=== PATIENT | female | born 1945 | race Caucasian/White ===

== ENCOUNTER 2017-03-25 19:29 | Emergency (ER) ==
[2017-03-25 19:34] VITALS: BP 152/75; TEMP 99.3; BMI 31.7
[2017-03-25] MEDS ORDERED: NORCO 7.5-325 PO STA (19:47)
--- NOTE | 2017-03-25 20:14 | CT ---
EXAM: CT scan of the left knee without contrast HISTORY: Left knee pain. History of Cisneros's cyst. TECHNIQUE: Helical imaging of the left knee was performed without contrast. 2 mm thin axial images and coronal and sagittal reconstructions were provided for interpretation. Comparison none. FINDINGS: No acute fractures are seen within the distal femur and proximal tibia. The proximal fib amna appears intact. There is moderate loss of joint space seen along the medial compartment of the left knee. Small osteophytes are seen arising from the medial femoral condyle and medial tibial gladys teau. There is no evidence of joint effusion. There is a small popliteal Cisneros cyst seen on axial image number 60 take measuring 2.1 cm AP, 7-8 m m transverse, 3.8 cm in height. IMPRESSION: No acute fractures are seen within the left knee. 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 There is a small popliteal Cisneros cyst.
--- NOTE | 2017-03-25 20:18 | ED.PDOC ---
General ED Provider: Dr. BREANNE CLAYTON-ER Chief Complaint: Knee Pain/Injury Stated Complaint: my knee hurts--i have a bakers cyst Time Seen by Physician: 19:35 Mode of Arrival: Walk-In Information Source: Patient Exam Limitations: No limitations Primary Care Provider: DARSHAN DIAZ Nursing and Triage Documentation Reviewed and Agree: Yes Musculoskeletal Complaint Exam - Back Pain Complaint/Exam Mechanism of Injury: Reports: No known trauma Onset/Duration: several days Symptoms Are: Still present Timing: Constant Initial Severity: Mild Current Severity: Mild Location: Reports: Discrete (left knee) Character: Reports: Dull, Aching Aggravating: Reports: Movements, Lifting, Bending, Walking Alleviating: Reports: None Associated Signs and Symptoms: Reports: Pain with weight bearing TAD Risk Factors: Reports: None AAA Risk Factors: Reports: None Cauda Equina Risk Factors: Reports: None Epidural Abcess Risk Factors: Reports: None Related Surgical History: Reports: None Focal Tenderness: Yes Paraspinal Muscle Tenderness: No Paraspinal Muscle Spasm: No Scoliosis: No Lordosis: No Kyphosis: No SLR Test: Right Negative, Left Negative Hip Motion Testing Pain: Right Negative, Left Negative Focal Weakness: Present: None Focal Sensory Loss: Present: None Gait: Present: Abnormal Differential Diagnoses: Fracture, Strain, Sprain Review of Systems - Review Of Systems Constitutional: Reports: No symptoms Eyes: Reports: No symptoms Ears, Nose, Mouth, Throat: Reports: No symptoms Respiratory: Reports: No symptoms Cardiac: Reports: No symptoms GI: Reports: No symptoms : Reports: No symptoms Musculoskeletal: Reports: Joint pain Skin: Reports: No symptoms Neurological: Reports: No symptoms Endocrine: Reports: No symptoms Hematologic/Lymphatic: Reports: No symptoms All Other Systems: Reviewed and Negative Past Medical History - Past Medical History Endocrine: Reports: DM 2 Cardiovascular: Reports: Unknown Respiratory: Reports: Unknown Hematological: Reports: Unknown Gastrointestinal: Reports: Unknown Genitourinary: Reports: Unknown Neuro/Psych: Reports: Unknown Musculoskeletal: Reports: Unknown Cancer: Reports: Unknown Last Menstrual Period: POST MENOPAUSAL - Surgical History General Surgical History: Reports: Unknown - Family History Family History: Reports: Unknown - Social History Smoking Status: Never smoker Hx Substance Use: No Alcohol Screening: None Lives: With family Physical Exam - Physical Exam Appearance: Well-appearing, No pain distress, Well-nourished Pain Distress: Mild Eyes: SAMIA ENT: Ears normal, Nose normal, Oropharynx normal Neck: Supple Respiratory: Airway patent, Breath sounds clear, Breath sounds equal, Respirations nonlabored Cardiovascular: RRR, Pulses normal, No rub, No murmur GI/: Soft, Nontender, No masses, Bowel sounds normal, No Organomegaly Musculoskeletal: Limited ROM Skin: Warm, Dry, Normal color Neurological: Sensation intact, Motor intact, Reflexes intact, Cranial nerves intact, Alert, Oriented Psychiatric: Affect appropriate Interpretation - Radiology Interpretation Radiology Interpretation By: Radiologist Radiology Results: Positive Exam Interpreted: CT Scan Re-Evaluation - Re-Evaluation Time of Re-Evaluation: 20:18 Status: Improved Vital Signs Stable: Yes Pain Level: 1 Appearance: NAD Lungs: Clear Skin: Warm and Dry Neuro: Alert and Oriented X3 CV: RRR Critical Care Note - Critical Care Note Total Time (mins): 0 Course - Course Orders, Labs, Meds: Orders Category Date Time Status Hydrocodone Bit/Acetaminophen [Berne 7.5-325] MEDS 03/25/17 19:47 Discontinued 1 tab PO ONCE STA CT KNEE LEFT WITHOUT CONTRAST Stat RADS 03/25/17 19:47 Completed Medications Discontinued Medications Generic Name Dose Route Start Last Admin Trade Name Freq PRN Reason Stop Dose Admin Acetaminophen/Hydrocodone Bitart 1 tab 03/25/17 19:47 03/25/17 20:03 Berne 7.5-325 PO 03/25/17 19:48 1 tab ONCE STA Administration Vital Signs: Temp Pulse Resp BP Pulse Ox 03/25/17 19:30 99.3 F 69 16 152/75 H 97 Departure - Departure Time of Disposition: 20:18 Disposition: HOME SELF-CARE Discharge Problem: Knee pain Instructions: Knee Pain (ED) Condition: Good Pt referred to PMD for follow-up: Yes Additional Instructions: norco 7.5mg q 4hrs prn pain #20---f/u wtih dr diaz tomorrow as scheduled Allergies/Adverse Reactions: Allergies felodipine [From Plendil] Adverse Reaction (Verified 03/25/17 19:34) Menbxlw-Qht-Cne Reductase Inhibitor Adverse Reaction (Verified 03/25/17 19:34) Home Medications: Ambulatory Orders 1 [No Reported Medications] 03/25/17 Disposition Discussed With: Patient, Family
== END 2017-03-25 20:23 | disposition home or self-care (01) ==
LOC: ED 19:29
DX: M25.562 Pain in left knee (principal)
CPT/HCPCS: 99282

== ENCOUNTER 2017-03-27 09:11 | Outpatient (CLI) ==
--- NOTE | 2017-03-27 10:18 | US ---
EXAM: Ultrasound venous Doppler bilateral lower extremity HISTORY: Swelling, pain COMPARISON: None TECHNIQUE: Venous duplex ultrasound of the right and left lower extremity was performed using color , vila-scale, and Doppler flow imaging. FINDINGS: There is normal color flow and vila scale appearance of the right and left common femoral , greater saphenous, profunda femoral, femoral, popliteal, peroneal, posterior tibial, and anterior tibial veins without evidence of intraluminal thrombus. Compression and augmentation is normal. Th ere is a predominately anechoic fluid collection in the left popliteal fossa with minimal internal e choes measuring 1.4 x 2.2 x 6.5 cm. IMPRESSION: 1. No right or left lower extremity deep venous thrombosis. 2. Left Cisneros's cyst
== END 2017-03-27 09:12 | disposition home or self-care (01) ==
LOC: RAD 09:11
PROVIDERS: ATTEND Internal Medicine
DX: M79.89 Other specified soft tissue disorders (principal); M79.605 Pain in left leg; M79.604 Pain in right leg

== ENCOUNTER 2017-10-16 09:58 | Outpatient (CLI) | payer OTHER ==
--- NOTE | 2017-10-16 12:57 | MRI ---
EXAM: MRI left shoulder without contrast COMPARISON: None available. HISTORY: Left shoulder pain. No known injury. TECHNIQUE: Multiplanar noncontrast MR images of the left shoulder were acquired using a 1.2 Dana ma gnet. Several sequences are limited by patient motion artifact and several sequences were repeated. FINDINGS: There is marked supraspinatus and subscapularis tendinosis with moderate infraspinatus ten dinosis. There is thinning and articular surface irregularity involving the distal 1.6 cm of the sup raspinatus consistent with a partial-thickness articular surface tear involving greater than 50% of t he tendon thickness and spanning the full width of the tendon. There is also question of partial-thi ckness bursal surface tear involving the insertional fibers of the supraspinatus. No definite full-t hickness tear with tendon retraction though a small communicating full-thickness perforation is not e xcluded. Fluid in the overlying subacromial/subdeltoid bursa. The partial-thickness articular surfa ce tear of the supraspinatus extends through the anterior portion of the infraspinatus. Marked glenohumeral joint osteoarthrosis with extensive full-thickness cartilage defects on both side s of the joint with subchondral edema/cystic change/sclerosis throughout the glenoid and to a lesser extent the humeral head. Posterior subluxation of the humeral head within the glenoid fossa without a solomon dislocation. Moderate sized glenohumeral joint effusion with synovial thickening, nonspecifi c. 9 mm loose body at the level of the subscapularis recess with suspected additional smaller loose bodies. Limited assessment of the glenoid labrum on this non arthrographic study. Diminished size a nd irregularity of the posterior glenoid labrum suggesting a degenerative type tear with question of tear of the superior labrum as well. The long head of the biceps is located within the bicipital groove with tendinosis/partial tearing te nosynovitis. Hypertrophic degenerative changes of the acromioclavicular joint with marginal osteophytes and a join t effusion. Mild widening of the acromioclavicular joint space measuring 8 mm in extent which may be related previous sprain without abnormal subluxation of the clavicle. Mild muscle atrophy. IMPRESSION: 1. Moderate to marked rotator cuff tendinosis. Extensive partial-thickness tear of the supraspinatus involving greater than 50% of the tendon thickness with question of a pinhole full-thickness perfora tion. Partial tear of the infraspinatus. 2. Fluid in the subacromial/subdeltoid bursa. 3. Marked glenohumeral joint osteoarthrosis with posterior subluxation of the humeral head within th e glenoid fossa. 4. Degenerative type tear of the glenoid labrum. 5. Tendinosis/partial tear and tenosynovitis of the long head biceps.
== END 2017-10-16 09:59 | disposition home or self-care (01) ==
LOC: RAD 09:58
PROVIDERS: ATTEND Internal Medicine
DX: M25.512 Pain in left shoulder (principal)

== ENCOUNTER 2018-12-04 08:15 | Outpatient (RCR) ==
--- NOTE | 2018-11-05 12:10 | RS.OPPTDN ---
Subjective Date of Note: 11/05/18 Visit #: 8 Number of visits approved by Insurance: 3x8, reassess though at 10th Date of Evaluation: 10/20/18 Payer Source: MEDICARE Treatment Diagnosis: Left shoulder pain, shoulder stiffness, s/p left Reverse TSA Current Subjective/complaints:: Patient says she has taken the ABD pillow out of her sling. She states she has slight soreness to the upper arm, but says it' s completely tolerable. She says she continues to work on HeP and has obtained items for raven to work on at home per her request. *Precautions: NO shoulder extension past neutral or Adduction and Internal Rotation Interventions - Exercise/Activities/Manual Therapy Exercises/Activities: Patient continues to receive PROM to the left shoulder. Patient performs most therex AA since she has difficulty relaxing. She continues to niurka increased shoulder flexion to ~140 degrees today. ABD is tolerable in ranges of 55-65 degrees. Patient niurka increased PREs to 2# dumbell for wrist only and 1# elbow sup/pron (flex/ext/ulnar and radial dev) x 12. Returned for more PROM. Patient sits for shoulder shrugs and scap adduction. Shoulder pulleys for flexion only ~15 slow reps with intermittent holds. Total minutes of Exercise: 38 Manual Therapy: NA HOME EXERCISE PROGRAM: pendulum exercises, scapular elevation and retraction ( without moving left arm back), and left wrist and elbow AROM. - Charges Timed Code Treatment Minutes: 38 Total Treatment Time: 38 Procedures billed for this date of service:: ex3 Assessment: Patient presents with slight soreness to the L upper arm primarily along the mid deltoid. She has been able to niurka AA shoulder flexion to ~140 degrees without difficulty. She maintains little to no pain and has removed ABD pillow to the L shoulder and appears to niurka well. She maintains active lifestyle and high motivation. Patient Education: Home Exercise Program, Home Safety, Education of Plan of Care Patient demonstrates compliance with HEP?: Yes Short Term Goals Goal #1: Pt independent in HEP and compliant in surgical precautions. Goal to be met by: 11/03/18 Progress towards Goal:: Progressing Goal #2: Left shoulder passive flexion WFL's. Goal to be met by: 11/03/18 Progress towards Goal:: Met Goal #3: Pt to demonstrate good postural awareness. Goal to be met by: 11/03/18 Progress towards Goal:: Met Complex Human Resources Manager Goals Goal #1: Pt knows HEP and to continue ex's to maintain functional level at D/C. Goal to be met by: 12/24/18 Progress towards goal: Progressing Goal #2: Score on UE functional scale improved to 50% impairment or less. Goal to be met by: 12/24/18 Comments: Will assess in 2 more sessions Goal #3: Left shoulder AROM WFL's to perform all selfcare and ADL's. Goal to be met by: 12/24/18 Goal #4: Pt to report no pain with AROM of the left UE. Goal to be met by: 12/24/18 Plan Dates of Shelter Goals: 12/24/18 Expiration date of current Insurance Approval:: 12/24/18 PLAN: Continue progressing PROM and follow up with 11/19/18.
--- NOTE | 2018-11-07 15:29 | RS.OPPTDN ---
Subjective Date of Note: 11/07/18 Visit #: 9 Number of visits approved by Insurance: Reassess at 10th Date of Evaluation: 10/20/18 Payer Source: MEDICARE Treatment Diagnosis: Left shoulder pain, shoulder stiffness, s/p left Reverse TSA Current Subjective/complaints:: Patient denies having any increase in pain or stiffness to the L arm due to damp weather. She says she continues to work on HEP within protocol and feels her arm is more flexible with taking out abd pillow. *Precautions: NO shoulder extension past neutral or Adduction and Internal Rotation Interventions - Exercise/Activities/Manual Therapy Exercises/Activities: Patient continues to receive PROM to the left shoulder. Patient performs most therex AA since she has difficulty relaxing. She continues to niurka increased shoulder flexion to ~140 degrees today. ABD is now ~ 90 degrees avg AAROM. 1# wand for bilateral shoulder flexion to ~135 degrees x 10, chest press with 1# wand x 10 reps. Patient niurka increased PREs to 2# dumbell for wrist only and 1# elbow sup/pron (flex/ext/ulnar and radial dev) x 12. Returned for more PROM. Patient sits for red tband scap retraction in limited range x 10. Total minutes of Exercise: 38 Manual Therapy: NA HOME EXERCISE PROGRAM: pendulum exercises, scapular elevation and retraction ( without moving left arm back), and left wrist and elbow AROM. - Charges Timed Code Treatment Minutes: 38 Total Treatment Time: 38 Procedures billed for this date of service:: ex3 Assessment: Patient continues to progress well with all activity here and at home. 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 She is able to niurka increased ROM regarding shoulder flexion and abd this past week (particularly with abd today). She is able to dress herself and perform most ADLs/tooth cutter spur. Patient Education: Education of Plan of Care Patient demonstrates compliance with HEP?: Yes Short Term Goals Goal #1: Pt independent in HEP and compliant in surgical precautions. Goal to be met by: 11/03/18 Progress towards Goal:: Progressing Goal #2: Left shoulder passive flexion WFL's. Goal to be met by: 11/03/18 Progress towards Goal:: Met Goal #3: Pt to demonstrate good postural awareness. Goal to be met by: 11/03/18 Progress towards Goal:: Met Group Home Goals Goal #1: Pt knows HEP and to continue ex's to maintain functional level at D/C. Goal to be met by: 12/24/18 Progress towards goal: Progressing Goal #2: Score on UE functional scale improved to 50% impairment or less. Goal to be met by: 12/24/18 Progress towards goal: Progressing Goal #3: Left shoulder AROM WFL's to perform all selfcare and ADL's. Goal to be met by: 12/24/18 Progress towards goal: Progressing Comments: within restrictions Goal #4: Pt to report no pain with AROM of the left UE. Goal to be met by: 12/24/18 Plan Dates of Group Home Goals: 12/24/18 Expiration date of current Insurance Approval:: 12/24/18 PLAN: Continue to continue to progress ROM within protocol.
--- NOTE | 2018-11-14 13:55 | RS.OPPTDN ---
Subjective Date of Note: 11/10/18 Visit #: 10 Number of visits approved by Insurance: 3x8, Reassess at 10 Date of Evaluation: 10/20/18 Payer Source: MEDICARE Treatment Diagnosis: Left shoulder pain, shoulder stiffness, s/p left Reverse TSA Current Subjective/complaints:: Patient offers no c/o's. 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 *Precautions: NO shoulder extension past neutral or Adduction and Internal Rotation Interventions - Exercise/Activities/Manual Therapy Exercises/Activities: Patient continues to receive PROM to the left shoulder. Patient performs most therex AA since she has difficulty relaxing. She continues to niurka increased shoulder flexion to ~140 degrees today. ABD is now ~ 90 degrees avg AAROM. 1# wand for bilateral shoulder flexion to ~135 degrees x 10, chest press with 1# wand x 10 reps. Patient niurka PREs to 2# dumbell for wrist only and 1# elbow sup/pron (flex/ext/ulnar and radial dev) x 12. Returned for more PROM. Patient sits for red tband scap retraction in limited range x 10. Completes UE Functional Assessment. Total minutes of Exercise: 38 Manual Therapy: NA HOME EXERCISE PROGRAM: pendulum exercises, scapular elevation and retraction ( without moving left arm back), and left wrist and elbow AROM. - Objective Findings Observations,measurements,etc.: UE Functional Index: 10/80 or 88% impairment. Although this indicates pt is severely impaired, she verbalizes being able to do many of the tasks, but is limited due to restrictions. She is able to do most all activities due to using the R UE and has 2 jobs currently. - Charges Timed Code Treatment Minutes: 38 Total Treatment Time: 38 Procedures billed for this date of service:: ex3 Assessment: Patient demo improvement on UE Functional Index, but remains with much limitation due to sling and restrictions. She returns to the ortho and will possibly have sling d/c'd allowing her to actively move her LUE more and progress to the limited tasks. She verbalizes little to no pain consistently to the L UE. Patient Education: Education of Plan of Care Patient demonstrates compliance with HEP?: Yes Short Term Goals Goal #1: Pt independent in HEP and compliant in surgical precautions. Goal to be met by: 11/03/18 Progress towards Goal:: Met Goal #2: Left shoulder passive flexion WFL's. Goal to be met by: 11/03/18 Progress towards Goal:: Met Goal #3: Pt to demonstrate good postural awareness. Goal to be met by: 11/03/18 Progress towards Goal:: Met Nursing Home Goals Goal #1: Pt knows HEP and to continue ex's to maintain functional level at D/C. Goal to be met by: 12/24/18 Progress towards goal: Progressing Goal #2: Score on UE functional scale improved to 50% impairment or less. Goal to be met by: 12/24/18 Progress towards goal: Progressing Goal #3: Left shoulder AROM WFL's to perform all selfcare and ADL's. Goal to be met by: 12/24/18 Progress towards goal: Progressing Goal #4: Pt to report no pain with AROM of the left UE. Goal to be met by: 12/24/18 Plan Dates of Phlebotomy Program Coordinator Goals: 12/24/18 Expiration date of current Insurance Approval:: 12/24/18 PLAN: Continue progressing therex for L UE. Return to follow up on 11/19/18.
--- NOTE | 2018-11-17 11:43 | RS.OPPTDN ---
Subjective Date of Note: 11/17/18 Visit #: 13 Number of visits approved by Insurance: 3x8, Reassess at 20 Date of Evaluation: 10/20/18 Payer Source: MEDICARE Treatment Diagnosis: Left shoulder pain, shoulder stiffness, s/p left Reverse TSA Current Subjective/complaints:: Patient says, "I feel good today." She denies pain and continues to perform all tasks at work and home using the dominant (R) UE. She says she is sleeping well, but is anticipating having her sling removed and curious about a weight limit. She says, " I did not do any of my exercises over the weekend since I was working a double shift." *Precautions: NO shoulder extension past neutral or Adduction and Internal Rotation Interventions - Exercise/Activities/Manual Therapy Exercises/Activities: Patient continues to receive PROM to the left shoulder. ROM to the cspine assessed and is WNL for SB/rotation bilaterally. Patient continues to perform most therex AA due to inability to relax. 1# wand for bilateral shoulder flexion to ~135 degrees x 10 with no active movement from the L UE, chest press with 1# wand x 10 reps with no active movement from the L UE. Patient niurka PREs to 2# dumbell for wrist only and 1# elbow sup/pron (flex/ ext/ulnar and radial dev) x 12. Returned for more PROM. Gentle isometrics for ext/ER/flex with elbow bent supported by table at side x 3. Patient sits for Passive motion to the L UE for flexion and scaption range. Gentle isometrics for L shoulder ext/flex/ER with elbow flexed at side x 3. Red tband scap retraction in limited range x 10. Total minutes of Exercise: 38 Manual Therapy: NA HOME EXERCISE PROGRAM: pendulum exercises, scapular elevation and retraction ( without moving left arm back), and left wrist and elbow AROM. - Charges Timed Code Treatment Minutes: 38 Total Treatment Time: 38 Procedures billed for this date of service:: ex3 Assessment: Patient demo cspine WNL, PROM for flex WFL to 142-145 degrees on avg. ABD passively to 88-90 degrees avg. No pain with activities at home/work or at PT. She is limited on UE Functional Assessment based on restrictions and sling at this point. Patient confident with motion at this point and when sling is discontinued she remains motivated to capture as much mobility and strength as she can. Patient Education: Education of diagnosis, Body/Joint mechanics, Home Exercise Program, Education of Plan of Care Patient demonstrates compliance with HEP?: Yes Short Term Goals Goal #1: Pt independent in HEP and compliant in surgical precautions. Goal to be met by: 11/03/18 Progress towards Goal:: Met Goal #2: Left shoulder passive flexion WFL's. Goal to be met by: 11/03/18 Progress towards Goal:: Met Goal #3: Pt to demonstrate good postural awareness. Goal to be met by: 11/03/18 Progress towards Goal:: Met Nursing Home Goals Goal #1: Pt knows HEP and to continue ex's to maintain functional level at D/C. Goal to be met by: 12/24/18 Progress towards goal: Progressing Goal #2: Score on UE functional scale improved to 50% impairment or less. Goal to be met by: 12/24/18 Progress towards goal: Progressing Goal #3: Left shoulder AROM WFL's to perform all selfcare and ADL's. Goal to be met by: 12/24/18 Progress towards goal: Progressing Goal #4: Pt to report no pain with AROM of the left UE. Goal to be met by: 12/24/18 Progress towards goal: Progressing Plan Dates of Human Capital Manager Goals: 12/24/18 Expiration date of current Insurance Approval:: 12/24/18 PLAN: Patient to follow up with Saturday and continue ROM
--- NOTE | 2018-11-18 09:25 | RS.OPPTDN ---
Subjective Date of Note: 11/12/18 Visit #: 11 Number of visits approved by Insurance: Reassessed at 10. Continue Date of Evaluation: 10/20/18 Payer Source: MEDICARE Treatment Diagnosis: Left shoulder pain, shoulder stiffness, s/p left Reverse TSA Current Subjective/complaints:: Patient says she has had a cold, but seems to be doing better. She says that her shoulder is not painful and has had no symptoms of discomfort with progressing therex here. *Precautions: NO shoulder extension past neutral or Adduction and Internal Rotation Interventions - Exercise/Activities/Manual Therapy Exercises/Activities: Patient continues to receive PROM/AAROM to the L shoulder. She continues to niurka increased shoulder flexion to ~140 degrees today. ABD averages ~90 degrees AAROM. 1# wand for bilateral shoulder flexion to ~135 degrees x 10, chest press with 1# wand x 10 reps. Patient niurka increased PREs to 2# dumbell for wrist only and 2# elbow sup/pron (flex/ext/ ulnar and radial dev) x 12. Green tband for triceps x 10. Returned for more PROM. Patient sits for green tband scap retraction in limited range x 10. Shoulder shrugs and 1# wand for bilateral shoulder flexion at EOB for AAROM x 5. Total minutes of Exercise: 38 Manual Therapy: NA HOME EXERCISE PROGRAM: pendulum exercises, scapular elevation and retraction ( without moving left arm back), and left wrist and elbow AROM. - Charges Timed Code Treatment Minutes: 38 Total Treatment Time: 38 Procedures billed for this date of service:: ex3 Assessment: Patient continues to show improvement with niurka to progressive PROM to the L UE and verbally admits improved ease with all ADLs, but does depend on the R or dominant UE at this point until she is released from restrictions. Patient Education: Home Exercise Program, Education of Plan of Care Patient demonstrates compliance with HEP?: Yes Short Term Goals Goal #1: Pt independent in HEP and compliant in surgical precautions. Goal to be met by: 11/03/18 Progress towards Goal:: Progressing Goal #2: Left shoulder passive flexion WFL's. Goal to be met by: 11/03/18 Progress towards Goal:: Met Goal #3: Pt to demonstrate good postural awareness. Goal to be met by: 11/03/18 Progress towards Goal:: Met Form Setter Steel Forms Goals Goal #1: Pt knows HEP and to continue ex's to maintain functional level at D/C. Goal to be met by: 12/24/18 Progress towards goal: Progressing Goal #2: Score on UE functional scale improved to 50% impairment or less. Goal to be met by: 12/24/18 Progress towards goal: Progressing Goal #3: Left shoulder AROM WFL's to perform all selfcare and ADL's. Goal to be met by: 12/24/18 Progress towards goal: Progressing Goal #4: Pt to report no pain with AROM of the left UE. Goal to be met by: 12/24/18 Plan Dates of Penitentiary Goals: 12/24/18 Expiration date of current Insurance Approval:: 12/24/18 PLAN: Continue ROM activities to the L UE to improve passive motion until she returns to the MD next Saturday.
--- NOTE | 2018-11-18 11:26 | RS.PTSUM ---
Progress Note/Summary Date of Note: 11/10/18 Date of Evaluation: 10/20/18 Number of Visits: 10 Number of visits approved by Insurance: NA Reporting Period for this Progress Note: 10/20/18 through 11/10/18 Current Complaints/Gains: Ms. 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 She denies pain and performs her HEP consistently without difficulty. Objective Measurements/Presentation: She averages AAROM of shoulder flexion to 144 degrees, abduction to 90 degrees. She is progressing with light weights for the left wrist and elbow. Demonstrates Cervical Spine AROM WFL's without discomfort. She is independent in donning/doffing her regular clothing and sling. She demonstrates slight improvement in score on UE functional scale, but significant improvement is not expected at this time due to restrictions from surgery. Score on UE FOM 88% impairment. AT evaluation score was 96% impairment. G Codes: NA Source of G Code Score: NA - Short Term Goals Goal #1: Pt independent in HEP and compliant in surgical precautions. Goal to be met by: 12/09/18 Progress towards Goal:: Progressing Goal #2: Left shoulder passive flexion WFL's. Goal to be met by: 11/03/18 Progress towards Goal:: Met Goal #3: Pt to demonstrate good postural awareness. Goal to be met by: 11/03/18 Progress towards Goal:: Met - Paint Pourer Goals Goal #1: Pt knows HEP and to continue ex's to maintain functional level at D/C. Goal to be met by: 12/24/18 Progress towards goal: Progressing Goal #2: Score on UE functional scale improved to 50% impairment or less. Goal to be met by: 12/24/18 Progress towards goal: Progressing Goal #3: Left shoulder AROM WFL's to perform all selfcare and ADL's. Goal to be met by: 12/24/18 Progress towards goal: Progressing Goal #4: Pt to report no pain with AROM of the left UE. Goal to be met by: 12/24/18 Progress towards goal: Progressing - Assessment Assessment of Improvement/Progress: Ms. Kraft is making good progress with ROM and she is compliant with her HEP and surgery restrictions. She has potential to regain functional AROM of the left UE as the protocol allows us to progress her strengthening. Summary: Patient has made progress towards goals., Patient demonstrates potential to gain increased function with therapy - Plan Plan: Continue Plan of Care Frequency: 2-3 X week Duration: 4 weeks Dates of Longterm Goals: 12/24/18 Expiration date of current Insurance Approval:: nA
--- NOTE | 2018-11-21 16:01 | RS.OPPTDN ---
Subjective Date of Note: 11/19/18 Visit #: 14 Number of visits approved by Insurance: Reassess at 20 Date of Evaluation: 10/20/18 Payer Source: MEDICARE Treatment Diagnosis: Left shoulder pain, shoulder stiffness, s/p left Reverse TSA Current Subjective/complaints:: Patient says she is happy she has had a good report from her ortho. Reports he discontinued her sling and said she may resume to using her arm like normal, just not to "over do it." She says she has begun actively moving the shoulder and using it a little at work, being cautious. *Precautions: NO shoulder extension past neutral or Adduction and Internal Rotation Interventions - Exercise/Activities/Manual Therapy Exercises/Activities: Patient received AAROM to the L shoulder in supine including all motions. She begins gentle isometrics with elbow in neutral for all directions x 5. Assisted slightly with reaching and elevation while supine. 3# for wrist motions, 2# PREs for elbow with arm at side elbow bent. 1 # wand for bilateral shoulder flexion and ABD, chest presses 2x5. Sitting: AA shoulder elevation and ABD. Manual isometrics again with elbow in neutral x 5 for all dir. 1# wand for bilateral shoulder elevation x 5. Ended with finger ladder for fllexion x 2. Total minutes of Exercise: 38 Manual Therapy: NA HOME EXERCISE PROGRAM: pendulum exercises, scapular elevation and retraction ( without moving left arm back), and left wrist and elbow AROM. - Charges Timed Code Treatment Minutes: 38 Total Treatment Time: 38 Procedures billed for this date of service:: ex3 Assessment: Patient has had positive follow up with her ortho indicating she is out of her sling and may resume slowly into normal activity with the LUE. Patient indicates only slight soreness at end range elevation and ABD. She is pleased with her progress and with removal of sling. She is able to niurka beginning ARoM in dept well today with having mild soreness at end ranges, but should improve as therex is advanced. Patient Education: Education of diagnosis, Home Exercise Program, Education of Plan of Care Patient demonstrates compliance with HEP?: Yes Short Term Goals Goal #1: Pt independent in HEP and compliant in surgical precautions. Goal to be met by: 12/09/18 Progress towards Goal:: Progressing Goal #2: Left shoulder passive flexion WFL's. Goal to be met by: 11/03/18 Progress towards Goal:: Met Goal #3: Pt to demonstrate good postural awareness. 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 Goal to be met by: 12/24/18 Progress towards goal: Progressing Goal #2: Score on UE functional scale improved to 50% impairment or less. Goal to be met by: 12/24/18 Progress towards goal: Progressing Goal #3: Left shoulder AROM WFL's to perform all selfcare and ADL's. Goal to be met by: 12/24/18 Progress towards goal: Progressing Goal #4: Pt to report no pain with AROM of the left UE. Goal to be met by: 12/24/18 Progress towards goal: Progressing Plan Dates of Solid Fiber Paster Operator Goals: 12/24/18 Expiration date of current Insurance Approval:: 12/24/18 PLAN: Patient to continue according to protocol minus sling and advancing ROM.
--- NOTE | 2018-11-24 10:31 | RS.OPPTDN ---
Subjective Date of Note: 11/24/18 Visit #: 16 Number of visits approved by Insurance: Reassess at Date of Evaluation: 10/20/18 Payer Source: MEDICARE Treatment Diagnosis: Left shoulder pain, shoulder stiffness, s/p left Reverse TSA Current Subjective/complaints:: Patient c/o increased soreness to the L arm ( posterior shoulder). She says she is using it more at work and home and wonders if it is from this or colder weather. She c/o stiffness. *Precautions: NO shoulder extension past neutral or Adduction and Internal Rotation Pain Assessment - Pain Description Pain Location: L posterior shoulder Interventions - Exercise/Activities/Manual Therapy Exercises/Activities: Patient received AAROM to the L shoulder in supine including all motions. She continues with gentle isometrics with elbow in neutral for all directions 2 x 5. Assisted slightly with reaching and elevation while supine. 3# for wrist motions, 2# PREs for elbow with arm at side elbow bent. 1# wand for bilateral shoulder flexion and ABD, chest presses 2x5. Sitting: AA shoulder elevation and ABD. Manual isometrics again with elbow in neutral x 5 for all dir. 1# wand for bilateral shoulder elevation x 5. Assisted ABD with 1# wand x 5. Shoulder shrugs and scap adduction. Ended with finger ladder for fllexion x 2. Total minutes of Exercise: 40 Manual Therapy: NA HOME EXERCISE PROGRAM: pendulum exercises, scapular elevation and retraction ( without moving left arm back), and left wrist and elbow AROM. - Charges Timed Code Treatment Minutes: 40 Total Treatment Time: 40 Procedures billed for this date of service:: ex3 Assessment: Patient experiencing increased soreness to the L shoulder, probably from more AROM and resuming more ADLs/tasks. Patient has been educated to slowly return to light activities and to adhere to protocol/MD orders. She is able to resist with all isometrics well and without c/o's except slight soreness with resisted shoulder extension. Patient Education: Body/Joint mechanics, Home Exercise Program, Home Safety Patient demonstrates compliance with HEP?: Yes Short Term Goals Goal #1: Pt independent in HEP and compliant in surgical precautions. Goal to be met by: 12/09/18 Progress towards Goal:: Progressing Goal #2: Left shoulder passive flexion WFL's. Goal to be met by: 11/03/18 Progress towards Goal:: Met Goal #3: Pt to demonstrate good postural awareness. Goal to be met by: 11/03/18 Progress towards Goal:: Met [facility] Goals Goal #1: Pt knows HEP and to continue ex's to maintain functional level at D/C. Goal to be met by: 12/24/18 Progress towards goal: Progressing Goal #2: Score on UE functional scale improved to 50% impairment or less. Goal to be met by: 12/24/18 Progress towards goal: Progressing Goal #3: Left shoulder AROM WFL's to perform all selfcare and ADL's. Goal to be met by: 12/24/18 Progress towards goal: Progressing Goal #4: Pt to report no pain with AROM of the left UE. Goal to be met by: 12/24/18 Progress towards goal: Progressing Plan Dates of Ice Cream Dispenser Goals: 12/24/18 Expiration date of current Insurance Approval:: 12/24/18 PLAN: Patient to continue with advancing with AROM for the L UE.
--- NOTE | 2018-11-27 10:50 | RS.OPPTDN ---
Subjective Date of Note: 11/27/18 Visit #: 17 Number of visits approved by Insurance: Reassess at 20 Date of Evaluation: 10/20/18 Payer Source: MEDICARE Treatment Diagnosis: Left shoulder pain, shoulder stiffness, s/p left Reverse TSA Current Subjective/complaints:: Patient c/o increased pain and increased difficulty lifting her L arm. She says she was doing so well with her PT and then now she is really hurting. She says she believes it is because she has a period of time at work in which her arm is hanging down causing soreness into her shoulder blade and neck. She reports having to take a pain pill when she got home from work Saturday (she has not had to take any pain medicine for at least the past few weeks). She asks if she can wear her sling during this time only. *Precautions: NO shoulder extension past neutral or Adduction and Internal Rotation - Heat/Cryotherapy Treatment: Hot Pack (over the L shoulder and scapula in supine x 15 mins) Interventions - Exercise/Activities/Manual Therapy Exercises/Activities: Patient received more conservative treatment today due to pain. She received PROM, but mostly AA due to continued inability to relax. All dir to comfort level. Prone for dangles and PROM for flexion, scaption, abd and scapular mobilization. Patient sits for active shoulder shrugs and scap retraction, assisted shoulder elevation/abd with elbow bent. Finished with pulleys for elevation x 12 reps demo improved range from beginning of treatment. Total minutes of Exercise: 31 Manual Therapy: NA HOME EXERCISE PROGRAM: pendulum exercises, scapular elevation and retraction ( without moving left arm back), and left wrist and elbow AROM. - Charges Timed Code Treatment Minutes: 31 Total Treatment Time: 51 Procedures billed for this date of service:: hp, ex2 Assessment: Patient presented with increased pain and more limited ROM today and since her work day on Saturday. She admits muscular soreness along the L scapula and posterior shoulder tenderness after allowing her arm to hang for 3- 4 hours at work. She had improved pain and flexibility following heat and conservative therex today. She has inquired if she can wear her sling during this period at work. Will contact her ortho office to see if this is alright. Patient Education: Education of diagnosis, Activity Modification Patient demonstrates compliance with HEP?: Yes Short Term Goals Goal #1: Pt independent in HEP and compliant in surgical precautions. Goal to be met by: 12/09/18 Progress towards Goal:: Progressing Comments:: Discontinued sling last week due to MD orders Goal #2: Left shoulder passive flexion WFL's. Goal to be met by: 11/03/18 Progress towards Goal:: Met Comments:: Previously met, but limited today related to pain Goal #3: Pt to demonstrate good postural awareness. Goal to be met by: 11/03/18 Progress towards Goal:: Met Intensive Care Unit Nurse Goals Goal #1: Pt knows HEP and to continue ex's to maintain functional level at D/C. Goal to be met by: 12/24/18 Progress towards goal: Progressing Goal #2: Score on UE functional scale improved to 50% impairment or less. Goal to be met by: 12/24/18 Progress towards goal: Progressing Goal #3: Left shoulder AROM WFL's to perform all selfcare and ADL's. Goal to be met by: 12/24/18 Progress towards goal: Progressing Comments: REcently having difficulty Goal #4: Pt to report no pain with AROM of the left UE. Goal to be met by: 12/24/18 Progress towards goal: Progressing Plan Dates of Skilled Nursing Goals: 12/24/18 Expiration date of current Insurance Approval:: 12/24/18 PLAN: Continue with ROM activities to improve mobility and pain. Patient encouraged to try heat to the scapula and shoulder then perform HEP. Will contact MD office about wearing sling short term at work to prevent pain from prolonged hang.
--- NOTE | 2018-12-02 11:40 | RS.OPPTDN ---
Subjective Date of Note: 12/01/18 Visit #: 18 Number of visits approved by Insurance: REassess at 20 Date of Evaluation: 10/20/18 Payer Source: MEDICARE Treatment Diagnosis: Left shoulder pain, shoulder stiffness, s/p left Reverse TSA Current Subjective/complaints:: Patient says she cannot "wall walk anymore." She reports returning to her sling a few hours a day at work so that her arm is not hanging. She says that that helps her pain tremendously. She expresses being upset about her regression and now having to compensate by doing tasks different ways because of this pain. Points to the posterior L shoulder. *Precautions: NO shoulder extension past neutral or Adduction and Internal Rotation - Heat/Cryotherapy Treatment: Hot Pack (to the L shoulder in supine prior to therex) Interventions - Exercise/Activities/Manual Therapy Exercises/Activities: Patient continued to receive more conservative treatment today due to pain. She received PROM all dir. She receives multiple cues to relax so that she will have less pain and decreased tension during ROM. All dir to comfort level. Manual isometrics for shoulder ext/abd/ER/IR with elbow at neutral x 5. Prone for dangles and PROM for flexion, scaption, abd and scapular mobilization. Patient sits for active shoulder shrugs and scap retraction, assisted shoulder elevation/abd with elbow bent. Finished with pulleys for elevation x 12 reps demo improved range from beginning of treatment. Total minutes of Exercise: 27 Manual Therapy: NA HOME EXERCISE PROGRAM: pendulum exercises, scapular elevation and retraction ( without moving left arm back), and left wrist and elbow AROM. - Charges Timed Code Treatment Minutes: 27 Total Treatment Time: 42 Procedures billed for this date of service:: hp, ex2 Assessment: Patient was encouraged to use heat at home to ease pain and provide muscle relaxation. She also was encouraged to wear sling at work for a few hours to improve ability to perform tasks and avoid increase in pain. She demo continued limitation in ROM when compared to last week. She demo increased difficulty with donning/doffing jacket and pulleys at home. Heat does improve her ability and pain, but is short lived. Patient Education: Education of diagnosis, Body/Joint mechanics, Activity Modification Patient demonstrates compliance with HEP?: Yes Short Term Goals Goal #1: Pt independent in HEP and compliant in surgical precautions. Goal to be met by: 02/05/19 Progress towards Goal:: Progressing Goal #2: Left shoulder passive flexion WFL's. Goal to be met by: 11/03/18 Progress towards Goal:: Met Goal #3: Pt to demonstrate good postural awareness. Goal to be met by: 11/03/18 Progress towards Goal:: Met Supervisor Claims Goals Goal #1: Pt knows HEP and to continue ex's to maintain functional level at D/C. Goal to be met by: 12/24/18 Progress towards goal: Progressing Goal #2: Score on UE functional scale improved to 50% impairment or less. Goal to be met by: 12/24/18 Progress towards goal: Progressing Goal #3: Left shoulder AROM WFL's to perform all selfcare and ADL's. Goal to be met by: 12/24/18 Progress towards goal: Progressing Goal #4: Pt to report no pain with AROM of the left UE. Goal to be met by: 12/24/18 Progress towards goal: Progressing Plan Dates of Supervisor Claims Goals: 12/24/18 Expiration date of current Insurance Approval:: 12/24/2018 PLAN: Patient to continue with PROM and AROM as able progressing with protocol
--- NOTE | 2018-12-04 11:17 | RS.OPPTDN ---
Subjective Date of Note: 12/04/18 Visit #: 19 Number of visits approved by Insurance: Reassess at 20 Date of Evaluation: 10/20/18 Payer Source: MEDICARE Treatment Diagnosis: Left shoulder pain, shoulder stiffness, s/p left Reverse TSA Current Subjective/complaints:: Patient says she has worn her sling a few hours at work and at home and it helped her shoulder pain tremendously. She says she is able to lift her arm and reach better. Pain remains along the posterior shoulder (L) *Precautions: NO shoulder extension past neutral or Adduction and Internal Rotation - Heat/Cryotherapy Treatment: Hot Pack (15 mins to the L shoulder in supine covering the scapula) Interventions - Exercise/Activities/Manual Therapy Exercises/Activities: Patient returned to PROM all dir limited range. Even with limitation, she is able to niurka mobility better than Saturday. She performs manual isometrics all directions with arm in neutral 2x5. Patient sits for active shoulder shrugs and scap retraction, assisted shoulder elevation/abd with elbow bent. Ended with pulleys x 12 -15 reps, shoulder abd AA with wand in standing, pendulum. Total minutes of Exercise: 34 Manual Therapy: NA HOME EXERCISE PROGRAM: pendulum exercises, scapular elevation and retraction ( without moving left arm back), and left wrist and elbow AROM. - Charges Timed Code Treatment Minutes: 34 Total Treatment Time: 49 Procedures billed for this date of service:: hp, ex2 Assessment: Patient has returned to wearing sling at work a few hours and at home in the afternoon to ease pain and pulling at the L UE. She denies any pain extending to her neck and demo cspine ROM WFL. She is able to niurka PROM better today including further range and overall less pain. She has tenderness along the inferior scapula through palpation. She demo greater ease with pulleys and improved range with less compensation with AA shoulder abd. Patient Education: Education of diagnosis, Home Exercise Program, Activity Modification, Education of Plan of Care Patient demonstrates compliance with HEP?: Yes Short Term Goals Goal #1: Pt independent in HEP and compliant in surgical precautions. Goal to be met by: 12/09/18 Progress towards Goal:: Progressing Goal #2: Left shoulder passive flexion WFL's. Goal to be met by: 11/03/18 Progress towards Goal:: Progressing Goal #3: Pt to demonstrate good postural awareness. Goal to be met by: 11/03/18 Progress towards Goal:: Met [facility] Goals Goal #1: Pt knows HEP and to continue ex's to maintain functional level at D/C. Goal to be met by: 12/24/18 Progress towards goal: Progressing Goal #2: Score on UE functional scale improved to 50% impairment or less. Goal to be met by: 12/24/18 Progress towards goal: Progressing Goal #3: Left shoulder AROM WFL's to perform all selfcare and ADL's. Goal to be met by: 12/24/18 Progress towards goal: Progressing Goal #4: Pt to report no pain with AROM of the left UE. Goal to be met by: 12/24/18 Progress towards goal: Progressing Plan Dates of Supervisor Cutting And Boning Goals: 12/24/18 Expiration date of current Insurance Approval:: 12/24/18 PLAN: Reassess at next visit
== END 2018-12-04 23:59 | disposition short-term general hospital (02) ==
PROVIDERS: ATTEND Orthopaedic Surgery
DX: M19.012 Primary osteoarthritis, left shoulder (principal); Z96.612 Presence of left artificial shoulder joint; M62.81 Muscle weakness (generalized); M25.512 Pain in left shoulder; M25.612 Stiffness of left shoulder, not elsewhere classified

== ENCOUNTER 2019-01-01 08:15 | Outpatient (RCR) ==
--- NOTE | 2018-12-08 09:31 | RS.CSNOTE ---
PT Case Note Date of Note: 12/08/18 Title of document: Case Note Note: Patient presents with sling and c/o pain enough that she has wanted to go to [facility] over the weekend. She reports her pain medication has not improved her pain this morning and she is not able to roberto bra or lift her arm enough to perform pulleys. She points to pain at the supraspinatus insertion with great deal of tenderness, pulling away from light palpation. She has been working since Saturday with her sling. Message was placed with Dr. Haq's nurse line and pt was also encouraged to call for a sooner appt (12/31/18). Recent 2 notes faxed. Number of visits approved by Insurance: 24/reassess at 20th (next visit) Expiration date of current Insurance Approval:: 12/24/18
--- NOTE | 2018-12-25 16:23 | RS.OPPTDN ---
Subjective Date of Note: 12/25/18 Visit #: 20 Number of visits approved by Insurance: Continue 12/24/18 2x4 Date of Evaluation: 10/20/18 Payer Source: MEDICARE Treatment Diagnosis: Left shoulder pain, shoulder stiffness, s/p left Reverse TSA Current Subjective/complaints:: Patient says, "My pain is a lot better." Reports she can touch the area that was hypersensitive at LDOS without difficulty now. States she has been careful at home and work not to use the L arm. She sleeps in her sling and has been performing only the HEP Dr. Haq told her to do. She denies taking OTC or prescription meds for pain. *Precautions: NO shoulder extension past neutral or Adduction and Internal Rotation <VICTOR MANUEL MEADOWS - Last Filed: 12/25/18 16:22> - Heat/Cryotherapy Treatment: Cryotherapy (15 mins surrounding the L shoulder after therex in supine) <VICTOR MANUEL MEADOWS - Last Filed: 12/25/18 16:22> Interventions - Exercise/Activities/Manual Therapy Exercises/Activities: Conservative treatment today as it is her first day to resume since 12/08/18. She receives PROM for flexion/abd and to the elbow. She was educated on diagnosis and safety with work duties, further encouraging her to adhere to MD orders. 25 mins total Manual Therapy: NA HOME EXERCISE PROGRAM: pendulum exercises, scapular elevation and retraction ( without moving left arm back), and left wrist and elbow AROM. - Charges Timed Code Treatment Minutes: 25 Total Treatment Time: 40 Procedures billed for this date of service:: cp, ex <VICTOR MANUEL MEADOWS - Last Filed: 12/25/18 16:22> Assessment: Patient able to niurka passive flexion to 90 degrees easily today in supine. She continues to try to assist with all motions. She is compliant with using sling for work and sleep. She uses R UE to assist L UE short ranges at home without difficulty. She is not using any pain medication at this point. Patient Education: Education of diagnosis, Body/Joint mechanics, Home Exercise Program, Home Safety, Education of Plan of Care <VICTOR MANUEL MEADOWS - Last Filed: 12/25/18 16:22> Short Term Goals Goal #1: Pt independent in HEP and compliant in surgical precautions. Goal to be met by: 12/09/18 Progress towards Goal:: Progressing Goal #2: Left shoulder passive flexion WFL's. Goal to be met by: 11/03/18 Progress towards Goal:: Progressing Goal #3: Pt to demonstrate good postural awareness. Goal to be met by: 11/03/18 Progress towards Goal:: Met <VICTOR MANUEL MEADOWS - Last Filed: 12/25/18 16:22> Goal to be met by: 01/09/19 Goal to be met by: 01/09/19 <ADAM LOWERY - Last Filed: 12/26/18 08:07> Senior Care Goals Goal #1: Pt knows HEP and to continue ex's to maintain functional level at D/C. Goal to be met by: 01/21/19 Progress towards goal: Progressing Goal #2: Score on UE functional scale improved to 50% impairment or less. Goal to be met by: 01/21/19 Progress towards goal: Progressing Goal #3: Left shoulder AROM WFL's to perform all selfcare and ADL's. Goal to be met by: 01/21/19 Progress towards goal: Progressing Goal #4: Pt to report no pain with AROM of the left UE. Goal to be met by: 01/21/19 Progress towards goal: Progressing <VICTOR MANUEL MEADOWS - Last Filed: 12/25/18 16:22> Plan Dates of Senior Care Goals: 01/21/19 Expiration date of current Insurance Approval:: 01/21/19 PLAN: Continue with new order for ROM per Dr. Severino TOM x 4 weeks <VICTOR MANUEL MEADOWS - Last Filed: 12/25/18 16:22>
--- NOTE | 2018-12-29 10:44 | RS.OPPTDN ---
Subjective Date of Note: 12/29/18 Visit #: 21 Number of visits approved by Insurance: 2x4-6 weeks with continuation order Date of Evaluation: 10/20/18 Payer Source: MEDICARE Treatment Diagnosis: Left shoulder pain, shoulder stiffness, s/p left Reverse TSA Current Subjective/complaints:: Patient says she is surprised by how well her arm is doing. She says that she has maintained wearing her sling at work and community. She says she has been very cautious of her L shoulder and resting it as much as possible. She reports no pain and no tenderness to the shoulder or scapular area. No pain meds for over 2 weeks. *Precautions: NO shoulder extension past neutral or Adduction and Internal Rotation - Heat/Cryotherapy Treatment: Cryotherapy (15 mins to the L shoulder/scap after therex) Interventions - Exercise/Activities/Manual Therapy Exercises/Activities: Continued with PROM to the L shoulder and elbow in supine all directions as niurka. Resumed gentle isometrics for flex/abd/IR/ER x 5. Began pulleys for flexion in sitting x 10. Continued to educate on sling wear and HEP review. 30 mins total Manual Therapy: NA HOME EXERCISE PROGRAM: pendulum exercises, scapular elevation and retraction ( without moving left arm back), and left wrist and elbow AROM. - Charges Timed Code Treatment Minutes: 30 Total Treatment Time: 45 Procedures billed for this date of service:: cp, ex2 Assessment: Patient niurka passive flexion initially to 90 degrees, then as PROM progressed, she demo 105 degrees. ABD passively to 95 degrees. No pain or soreness experienced with any ROM today or since last session. Patient remains active with work duties and home tasks, but is mindful of shoulder restrictions and wears sling as instructed. She demo 4-/5 MMT grossly throughout the L shoulder. Patient Education: Education of diagnosis, Home Exercise Program, Home Safety Patient demonstrates compliance with HEP?: Yes Short Term Goals Goal #1: Pt independent in HEP and compliant in surgical precautions. Goal to be met by: 01/09/19 Progress towards Goal:: Progressing Goal #2: Left shoulder passive flexion WFL's. Goal to be met by: 01/09/19 Progress towards Goal:: Progressing Goal #3: Pt to demonstrate good postural awareness. Goal to be met by: 11/03/18 Progress towards Goal:: Met Ward Attendant Goals Goal #1: Pt knows HEP and to continue ex's to maintain functional level at D/C. Goal to be met by: 01/21/19 Progress towards goal: Progressing Goal #2: Score on UE functional scale improved to 50% impairment or less. Goal to be met by: 01/21/19 Progress towards goal: Progressing Goal #3: Left shoulder AROM WFL's to perform all selfcare and ADL's. Goal to be met by: 01/21/19 Progress towards goal: Progressing Goal #4: Pt to report no pain with AROM of the left UE. Goal to be met by: 01/21/19 Progress towards goal: Progressing Plan Dates of Chcf Goals: 01/21/19 Expiration date of current Insurance Approval:: 01/21/19 PLAN: Continue to progress PROM to the L shoulder
--- NOTE | 2019-01-01 15:28 | RS.OPPTDN ---
Subjective Date of Note: 01/01/19 Visit #: 22 Number of visits approved by Insurance: na Date of Evaluation: 10/20/18 Payer Source: MEDICARE Treatment Diagnosis: Left shoulder pain, shoulder stiffness, s/p left Reverse TSA Current Subjective/complaints:: Patient says she is pleased with how well her shoulder is healing. She says she does not have any pain right now. States she has been working on her pulleys at home. *Precautions: Updated...pt has no restrictions. May perform A/PROM - Heat/Cryotherapy Treatment: Cryotherapy (15 mins to the L shoulder in supine after therex) Interventions - Exercise/Activities/Manual Therapy Exercises/Activities: Continued with PROM to the L shoulder and elbow in supine all directions as niurka. Resumed gentle isometrics for flex/abd/IR/ER 2 x 5. Patient sits at EOB for AAROM for shoulder flexion/abd/scaption. Patient performs shoulder shrugs and scap retraction. Measurements taken. Total minutes of Exercise: 28 Manual Therapy: NA HOME EXERCISE PROGRAM: pendulum exercises, scapular elevation and retraction ( without moving left arm back), and left wrist and elbow AROM. - Charges Timed Code Treatment Minutes: 28 Total Treatment Time: 43 Procedures billed for this date of service:: cp, ex2 Assessment: Patient presents with increased PROM supine for flexion to 121 degrees, abd to 102 degrees at end of session. She had mild soreness at the L anterior shoulder with AA ABD in supine, but immediately stopped with short rest and returning to AA shoulder flexion. Patient Education: Education of diagnosis, Body/Joint mechanics, Home Exercise Program, Home Safety Patient demonstrates compliance with HEP?: Yes Short Term Goals Goal #1: Pt independent in HEP and compliant in surgical precautions. Goal to be met by: 01/09/19 Progress towards Goal:: Progressing Goal #2: Left shoulder passive flexion WFL's. Goal to be met by: 01/09/19 Progress towards Goal:: Progressing Goal #3: Pt to demonstrate good postural awareness. Goal to be met by: 11/03/18 Progress towards Goal:: Met Excel Expert Goals Goal #1: Pt knows HEP and to continue ex's to maintain functional level at D/C. Goal to be met by: 01/21/19 Progress towards goal: Progressing Goal #2: Score on UE functional scale improved to 50% impairment or less. Goal to be met by: 01/21/19 Progress towards goal: Progressing Goal #3: Left shoulder AROM WFL's to perform all selfcare and ADL's. Goal to be met by: 01/21/19 Progress towards goal: Progressing Goal #4: Pt to report no pain with AROM of the left UE. Goal to be met by: 01/21/19 Progress towards goal: Progressing Plan Dates of Excel Expert Goals: 01/21/19 Expiration date of current Insurance Approval:: 01/21/19 PLAN: Patient to continue BIW for L UE ROM/gentle strengthening.
== END 2019-01-01 23:59 ==
PROVIDERS: ATTEND Orthopaedic Surgery
DX: Z96.612 Presence of left artificial shoulder joint (principal)

== ENCOUNTER 2019-01-30 14:00 | Outpatient (RCR) ==
--- NOTE | 2019-01-05 09:10 | RS.OPPTDN ---
Subjective Date of Note: 01/05/19 Visit #: 23 Number of visits approved by Insurance: Reassess @ 30 Date of Evaluation: 10/20/18 Payer Source: MEDICARE Treatment Diagnosis: Left shoulder pain, shoulder stiffness, s/p left Reverse TSA Current Subjective/complaints:: Patient says she has been doing well with discontinuing sling at work. She says she only has a little soreness intermittently. She says she continues to work on pulleys, isometrics, and scap exercises at home without any problems. Mrs. Kraft reports she is able to scratch her head and fix her hair using the L UE and she is able to roberto bra with improved ease. She is pleased with improved mobility at this time. *Precautions: Updated...pt has no restrictions. May perform A/PROM - Heat/Cryotherapy Treatment: Cryotherapy (15 mins to the L shoulder in supine after therex) Interventions - Exercise/Activities/Manual Therapy Exercises/Activities: Continued with PROM to the L shoulder and elbow in supine all directions as niurka. Resumed gentle isometrics for flex/abd/IR/ER 2 x 5. Patient sits at EOB for AAROM for shoulder flexion/abd/scaption. Patient performs shoulder shrugs and scap retraction. Manual Therapy: NA HOME EXERCISE PROGRAM: pendulum exercises, scapular elevation and retraction ( without moving left arm back), and left wrist and elbow AROM. - Charges Timed Code Treatment Minutes: 27 Total Treatment Time: 42 Procedures billed for this date of service:: cp, ex2 Assessment: Patient demo improved L UE PROM even since previous session by ~5- 10 degrees. Improved resistance provided by pt with all isometrics also. She continues to be motivated and performs HEP consistently. Patient Education: Education of diagnosis, Home Exercise Program, Education of Plan of Care Patient demonstrates compliance with HEP?: Yes Short Term Goals Goal #1: Pt independent in HEP and compliant in surgical precautions. Goal to be met by: 01/09/19 Progress towards Goal:: Progressing Goal #2: Left shoulder passive flexion WFL's. Goal to be met by: 01/09/19 Progress towards Goal:: Progressing Goal #3: Pt to demonstrate good postural awareness. Goal to be met by: 11/03/18 Progress towards Goal:: Met Hourly Team Members Goals Goal #1: Pt knows HEP and to continue ex's to maintain functional level at D/C. Goal to be met by: 01/21/19 Progress towards goal: Progressing Goal #2: Score on UE functional scale improved to 50% impairment or less. Goal to be met by: 01/21/19 Progress towards goal: Progressing Goal #3: Left shoulder AROM WFL's to perform all selfcare and ADL's. Goal to be met by: 01/21/19 Progress towards goal: Progressing Goal #4: Pt to report no pain with AROM of the left UE. Goal to be met by: 01/21/19 Progress towards goal: Progressing Plan Dates of Hourly Team Members Goals: 01/21/19 Expiration date of current Insurance Approval:: 01/21/19 PLAN: Patient to continue with progressive ROM for the L UE as niurka BIW
--- NOTE | 2019-01-08 12:05 | RS.OPPTDN ---
Subjective Date of Note: 01/08/19 Visit #: 24 Number of visits approved by Insurance: Reassess at 30 Date of Evaluation: 10/20/18 Payer Source: MEDICARE Treatment Diagnosis: Left shoulder pain, shoulder stiffness, s/p left Reverse TSA Current Subjective/complaints:: Patient says she has not worn her sling at all this week including at work. She says she can tell her mobility is much better actively and is able to place her pills in her L hand and "throw them" in her mouth. She says none of the activities at work are bothering her and she is beginning to use her L UE a little steering her car. Lauren is using ice BID and pulleys 2-3 times a day at home. *Precautions: Updated...pt has no restrictions. May perform A/PROM - Heat/Cryotherapy Treatment: Cryotherapy (20 mins to the L shoulder after therex supine ) Interventions - Exercise/Activities/Manual Therapy Exercises/Activities: Continued with AA/PROM to the L shoulder (FLEX to 122 degrees and ABD to 92 degrees) and elbow in supine all directions as niurka. Resumed gentle isometrics for flex/abd/IR/ER 2 x 5. Patient performs active reaching with elbow bent x 5, then active shoulder flexion, scaption x 5. Patient sits at EOB for AAROM for shoulder flexion/abd/scaption. Scapular stabilization against wall, Patient performs shoulder shrugs and scap retraction. Total minutes of Exercise: 29 Manual Therapy: NA HOME EXERCISE PROGRAM: pendulum exercises, scapular elevation and retraction ( without moving left arm back), and left wrist and elbow AROM. - Objective Findings Observations,measurements,etc.: Active flexion at EOB: 89. Active ABD at EOB: 72 - Charges Timed Code Treatment Minutes: 29 Total Treatment Time: 44 Procedures billed for this date of service:: cp, ex2 Assessment: Patient experiencing less pain to the L shoulder, improved ability to perform work tasks without needing her sling, and increased motion with PROM/ AROM. She continues to be motivated to further acquire more strength and ROM so that she can perform more work duties and tasks around her home. She does present with some scapular compensation with shoulder elevation actively in sitting in which this requires clinician depression to allow more correct AA motion. She is very compliant with using cryotherapy and pulleys at home. Patient Education: Body/Joint mechanics, Education of Plan of Care Patient demonstrates compliance with HEP?: Yes Short Term Goals Goal #1: Pt independent in HEP and compliant in surgical precautions. Goal to be met by: 01/09/19 Progress towards Goal:: Progressing Goal #2: Left shoulder passive flexion WFL's. Goal to be met by: 01/09/19 Progress towards Goal:: Progressing Goal #3: Pt to demonstrate good postural awareness. Goal to be met by: 11/03/18 Progress towards Goal:: Met Correction Goals Goal #1: Pt knows HEP and to continue ex's to maintain functional level at D/C. Goal to be met by: 01/21/19 Progress towards goal: Progressing Goal #2: Score on UE functional scale improved to 50% impairment or less. Goal to be met by: 01/21/19 Progress towards goal: Progressing Goal #3: Left shoulder AROM WFL's to perform all selfcare and ADL's. Goal to be met by: 01/21/19 Progress towards goal: Progressing Goal #4: Pt to report no pain with AROM of the left UE. Goal to be met by: 01/21/19 Progress towards goal: Progressing Plan Dates of Drywall Application Supervisor Goals: 01/21/19 Expiration date of current Insurance Approval:: 01/21/19 PLAN: Patient to continue BIW. Attend follow up appt 01/22/19.
--- NOTE | 2019-01-12 11:03 | RS.OPPTDN ---
Subjective Date of Note: 01/12/19 Visit #: 25 Number of visits approved by Insurance: until 01/21/19 Date of Evaluation: 10/20/18 Payer Source: MEDICARE Treatment Diagnosis: Left shoulder pain, shoulder stiffness, s/p left Reverse TSA Current Subjective/complaints:: Patient says she has been pretty active over the weekend. 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 She says she did have slight short lived pain to the L shoulder during turning over coffee cups multiple times at work, but when she discontinued the task, symptoms stopped. *Precautions: Updated...pt has no restrictions. May perform A/PROM - Heat/Cryotherapy Treatment: Cryotherapy (15 mins to the L shoulder in supine after therex) Interventions - Exercise/Activities/Manual Therapy Exercises/Activities: Continued with AA/PROM to the L shoulder and elbow in supine all directions as niurka. Continued with isometrics for flex/abd/IR/ER 2 x 5. 1# wand for bilateral shoulder flexion and chest presses 2x5 in supine. Patient performs active reaching with elbow bent x 5, then active shoulder flexion, scaption x 5. Patient sits at EOB for AAROM for shoulder flexion/abd/ scaption. AAROM for ABD using 1# wand at EOB x 5. Patient performs shoulder shrugs and scap retraction. Total minutes of Exercise: 33 Manual Therapy: NA HOME EXERCISE PROGRAM: pendulum exercises, scapular elevation and retraction ( without moving left arm back), and left wrist and elbow AROM. - Charges Timed Code Treatment Minutes: 33 Total Treatment Time: 48 Procedures billed for this date of service:: cp, ex2 Assessment: Patient niurka increased activity at home, work, and therapy. Continued to encourage patient on safety and not working too long on particular activities to avoid increase in pain or injury. She is able to demo slightly less compensation with AAROM for flex/abd in sitting. Patient Education: Home Exercise Program, Home Safety, Activity Modification Patient demonstrates compliance with HEP?: Yes Short Term Goals Goal #1: Pt independent in HEP and compliant in surgical precautions. Goal to be met by: 01/09/19 Progress towards Goal:: Progressing Goal #2: Left shoulder passive flexion WFL's. Goal to be met by: 01/09/19 Progress towards Goal:: Progressing Goal #3: Pt to demonstrate good postural awareness. Goal to be met by: 11/03/18 Progress towards Goal:: Met Skilled Nursing Goals Goal #1: Pt knows HEP and to continue ex's to maintain functional level at D/C. Goal to be met by: 01/21/19 Progress towards goal: Progressing Goal #2: Score on UE functional scale improved to 50% impairment or less. Goal to be met by: 01/21/19 Progress towards goal: Progressing Goal #3: Left shoulder AROM WFL's to perform all selfcare and ADL's. Goal to be met by: 01/21/19 Progress towards goal: Progressing Goal #4: Pt to report no pain with AROM of the left UE. Goal to be met by: 01/21/19 Progress towards goal: Progressing Plan Dates of Skilled Nursing Goals: 01/21/19 Expiration date of current Insurance Approval:: 01/21/19 PLAN: Continue BIW until MD visit 01/22/19
--- NOTE | 2019-01-15 12:01 | RS.OPPTDN ---
Subjective Date of Note: 01/15/19 Visit #: 26 Number of visits approved by Insurance: Complete by 01/21/19 Date of Evaluation: 10/20/18 Payer Source: MEDICARE Treatment Diagnosis: Left shoulder pain, shoulder stiffness, s/p left Reverse TSA Current Subjective/complaints:: Patient admits she did not do her HEP the last couple days because she was working at [employer]. 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 She denies any ache due to weather changes. *Precautions: Updated...pt has no restrictions. May perform A/PROM - Heat/Cryotherapy Treatment: Cryotherapy (20 mins to the L shoulder and upper arm in supine after therex) Interventions - Exercise/Activities/Manual Therapy Exercises/Activities: Continued with AA/PROM to the L shoulder and elbow in supine all directions as niurka. Continued with isometrics for flex/abd/IR/ER 2 x 5. 1# wand for bilateral shoulder flexion and chest presses 2x8 in supine. Patient performs active reaching with elbow bent x 5, then active shoulder flexion, scaption x 5. AA shoulder flexion and reach with elbow bent x 8 ea. Patient sits at EOB for AAROM for shoulder for flexion/abd using 1# wand then AA to AROM short ranges for flexion/scaption. Ended with cryotherapy. Total minutes of Exercise: 32 Manual Therapy: NA HOME EXERCISE PROGRAM: pendulum exercises, scapular elevation and retraction ( without moving left arm back), and left wrist and elbow AROM. - Charges Timed Code Treatment Minutes: 32 Total Treatment Time: 47 Procedures billed for this date of service:: cp, ex2 Assessment: Patient niurka increasing PROM and AAROM. She is still struggling with limited Active reaching, but continues to work it at her job as niurka and HEP. Strength improving to 4+/5 generally throughout the L shoudler and pain remains little to none. Soreness experienced only along the mid deltoid this week. Patient Education: Education of diagnosis, Education of Plan of Care Patient demonstrates compliance with HEP?: Yes Short Term Goals Goal #1: Pt independent in HEP and compliant in surgical precautions. Goal to be met by: 01/09/19 Progress towards Goal:: Progressing Goal #2: Left shoulder passive flexion WFL's. Goal to be met by: 01/09/19 Progress towards Goal:: Progressing Goal #3: Pt to demonstrate good postural awareness. Goal to be met by: 11/03/18 Progress towards Goal:: Met Correction Goals Goal #1: Pt knows HEP and to continue ex's to maintain functional level at D/C. Goal to be met by: 01/21/19 Progress towards goal: Progressing Goal #2: Score on UE functional scale improved to 50% impairment or less. Goal to be met by: 01/21/19 Progress towards goal: Progressing Goal #3: Left shoulder AROM WFL's to perform all selfcare and ADL's. Goal to be met by: 01/21/19 Progress towards goal: Progressing Goal #4: Pt to report no pain with AROM of the left UE. Goal to be met by: 01/21/19 Progress towards goal: Progressing Plan Dates of Correction Goals: 01/21/19 Expiration date of current Insurance Approval:: 01/21/19 PLAN: Continue progressing ROM until MD next week
--- NOTE | 2019-01-19 09:45 | RS.OPPTDN ---
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 She says that she was able to sleep on the L side for the past few days and did not cause any increase in pain/difficulties. *Precautions: Updated...pt has no restrictions. May perform A/PROM - Heat/Cryotherapy Treatment: Cryotherapy (15 mins to the L shoulder and upper arm in supine after therex) Interventions - Exercise/Activities/Manual Therapy Exercises/Activities: Continued with AA/PROM to the L shoulder and elbow in supine all directions as niurka. Continued with isometrics for flex/abd/IR/ER 2 x 5. Increased to 2# wand for bilateral shoulder flexion and chest presses 2x8 in supine. Patient performs active reaching with elbow bent x 5, then active shoulder flexion, scaption x 5. AA shoulder flexion and reach with elbow bent x 8 ea. Finished with more PROM to the L shoulder. Patient sits at EOB for AAROM for shoulder for flexion/abd using 1# wand then AA to AROM short ranges for flexion/scaption. Green tband for scap retraction x 12. Active reaching for cones at different levels in sitting x 8. Ended with cryotherapy. Total minutes of Exercise: 35 Manual Therapy: NA HOME EXERCISE PROGRAM: pendulum exercises, scapular elevation and retraction ( without moving left arm back), and left wrist and elbow AROM. - Charges Timed Code Treatment Minutes: 35 Total Treatment Time: 50 Procedures billed for this date of service:: cp, ex2 Assessment: Patient progressing well with functional activity at home, driving, and cleaning [employer]. She is able to now sleep on her L side without difficulty. She is demo increased AA shoulder flexion in supine to ~130 degrees now and ABD to 95 degrees with only slight mm soreness/fatigue. She is able to apply 4-/5 MMT for the L shoulder grossly. Patient Education: Home Exercise Program, Education of Plan of Care Patient demonstrates compliance with HEP?: Yes Short Term Goals Goal #1: Pt independent in HEP and compliant in surgical precautions. Goal to be met by: 01/09/19 Progress towards Goal:: Met Goal #2: Left shoulder passive flexion WFL's. Goal to be met by: 01/09/19 Progress towards Goal:: Progressing Goal #3: Pt to demonstrate good postural awareness. Goal to be met by: 11/03/18 Progress towards Goal:: Met Intermediate Goals Goal #1: Pt knows HEP and to continue ex's to maintain functional level at D/C. Goal to be met by: 01/21/19 Progress towards goal: Progressing Goal #2: Score on UE functional scale improved to 50% impairment or less. Goal to be met by: 01/21/19 Progress towards goal: Progressing Goal #3: Left shoulder AROM WFL's to perform all selfcare and ADL's. Goal to be met by: 01/21/19 Progress towards goal: Progressing Goal #4: Pt to report no pain with AROM of the left UE. Goal to be met by: 01/21/19 Progress towards goal: Progressing Plan Dates of Mechanics Handyman Goals: 01/21/19 Expiration date of current Insurance Approval:: 01/21/19 PLAN: Patient to continue x 1 more session on Sat., then follow up with , 01/22/19.
--- NOTE | 2019-01-23 14:36 | RS.OPPTDN ---
Subjective Date of Note: 01/21/19 Visit #: 28 Number of visits approved by Insurance: [id number] Date of Evaluation: 10/20/18 Payer Source: MEDICARE Treatment Diagnosis: Left shoulder pain, shoulder stiffness, s/p left Reverse TSA Current Subjective/complaints:: Patient arrives saying she "stepped wrong" and heard a pop in her R foot causing her great pain and making her go to the [facility] in [place]. She has a rocker boot on at this time. She says her shoulder is doing much better and is able to lift it easier, but would like to reach higher "by herself." She is eager to return to the MD tomorrow. *Precautions: Updated...pt has no restrictions. May perform A/PROM Interventions - Exercise/Activities/Manual Therapy Exercises/Activities: Continued with AA/PROM to the L shoulder and elbow in supine all directions as niurka. Continued with isometrics for flex/abd/IR/ER 2 x 5. Increased to 2# wand for bilateral shoulder flexion and chest presses 2x10 in supine. Patient performs active reaching with elbow bent x 5, then active shoulder flexion, scaption x 5. AA shoulder flexion and reach with elbow bent x 8 ea. Finished with more PROM to the L shoulder. Patient sits at EOB for AAROM for shoulder for flexion/abd using 1# wand then AA to AROM short ranges for flexion/scaption. Green tband for scap retraction x 12. Active reaching for cones at different levels in sitting x 8. Patient wished not to have cold pack today. Total minutes of Exercise: 34 Manual Therapy: NA HOME EXERCISE PROGRAM: pendulum exercises, scapular elevation and retraction ( without moving left arm back), and left wrist and elbow AROM. - Objective Findings Observations,measurements,etc.: Active flexion in sitting 80 degrees. Active flexion in supine 115 degrees. Active ABD in sitting 50 degrees. MMT 4-4+/5. PROM in supine all WFL - Charges Timed Code Treatment Minutes: 34 Total Treatment Time: 39 Procedures billed for this date of service:: ex2 Assessment: Patient is currently off from work due to recent injury to the R foot. She presents with short rocker boot to the R LE and using SC on the R side. She demo increased AROM for the L shoulder, but remains with scapular compensation in sitting. All resistive exercise has improved in supine and AAROM/PROM in supine has improved to WFL regarding flexion and ABD. Patient Education: Education of diagnosis, Home Exercise Program, Home Safety, Education of Plan of Care Patient demonstrates compliance with HEP?: Yes Short Term Goals Goal #1: Pt independent in HEP and compliant in surgical precautions. Goal to be met by: 01/09/19 Progress towards Goal:: Met Goal #2: Left shoulder passive flexion WFL's. Goal to be met by: 01/09/19 Progress towards Goal:: Met Goal #3: Pt to demonstrate good postural awareness. Goal to be met by: 11/03/18 Progress towards Goal:: Met Intelligence Specialist Goals Goal #1: Pt knows HEP and to continue ex's to maintain functional level at D/C. Goal to be met by: 01/21/19 Progress towards goal: Progressing Goal #2: Score on UE functional scale improved to 50% impairment or less. Goal to be met by: 01/21/19 Progress towards goal: Progressing Goal #3: Left shoulder AROM WFL's to perform all selfcare and ADL's. Goal to be met by: 01/21/19 Progress towards goal: Progressing Goal #4: Pt to report no pain with AROM of the left UE. Goal to be met by: 01/21/19 Progress towards goal: Progressing Plan Dates of Longterm Goals: 01/21/19 Expiration date of current Insurance Approval:: 01/21/19 PLAN: Patient has completed 28 sessions per orders and will attend follow up tomorrow with Dr. Haq.
--- NOTE | 2019-01-26 15:22 | RS.PTSUM ---
Progress Note/Summary Date of Note: 01/26/19 Date of Evaluation: 10/20/18 Number of Visits: 29 Number of visits approved by Insurance: NA Current Complaints/Gains: Ms. Kraft reports limited use of the left UE. States she has to use the right UE to help raise the left UE. Reports more pain last night , possibly from trying to reach to put up a paper towel roll using both arms. States left shoulder pain depends on the direction she moves it. She still cannot sleep on the left shoulder. Objective Measurements/Presentation: PROM of the left shoulder is WFL's into flexion and scaption. ER to 50 degrees. AAROM into flexion in supine to 135 degrees. In sitting, AROM into flexion to 75 degrees, abduction 55 degrees. She compensates to gain more ROM. She would like to continue therapy to gain more motion. G Codes: Na Source of G Code Score: Na - Short Term Goals Goal #1: Pt independent in HEP and compliant in surgical precautions. Goal to be met by: 01/09/19 Progress towards Goal:: Met Goal #2: Left shoulder passive flexion WFL's. Goal to be met by: 01/09/19 Progress towards Goal:: Met Goal #3: Pt to demonstrate good postural awareness. Goal to be met by: 11/03/18 Progress towards Goal:: Met - Customer Relations Advisor Goals Goal #1: Pt knows HEP and to continue ex's to maintain functional level at D/C. Goal to be met by: 02/16/19 Progress towards goal: Progressing Goal #2: Score on UE functional scale improved to 50% impairment or less. Goal to be met by: 02/16/19 Progress towards goal: Progressing Goal #3: Left shoulder AROM WFL's to perform all selfcare and ADL's. Goal to be met by: 02/16/19 Progress towards goal: Progressing Goal #4: Pt to report no pain with AROM of the left UE. Goal to be met by: 02/16/19 Progress towards goal: Progressing - Assessment Assessment of Improvement/Progress: Ms. Kraft has made progress with therapy. She has received another order to continue therapy for four weeks. Explained to Ms. Kraft that we would only be able to justify another couple of weeks to try more strengthening. Summary: Patient has made progress towards goals., Patient demonstrates potential to gain increased function with therapy - Plan Plan: Continue Plan of Care Frequency: 2-3 X week Duration: 2 weeks Dates of Customer Relations Advisor Goals: 02/16/19 Expiration date of current Insurance Approval:: LUCA
--- NOTE | 2019-01-26 15:39 | RS.OPPTDN ---
Subjective Date of Note: 01/26/19 Visit #: 29 Number of visits approved by Insurance: Reassessing today Date of Evaluation: 10/20/18 Payer Source: MEDICARE Treatment Diagnosis: Left shoulder pain, shoulder stiffness, s/p left Reverse TSA Current Subjective/complaints:: Patient says she reached up for paper towel at work and now says she has increased soreness to the L upper arm. She says it's not enough to take pain medication. She says she continues to work on all HEP and feels improved strength and mobility, but does try to self stretch her L arm across midline and to improve rotation as well. Reports her pulleys broke today and has not been able to use them. *Precautions: Updated...pt has no restrictions. May perform A/PROM - Heat/Cryotherapy Treatment: Cryotherapy (15 mins to the L shoulder after therex in sitting) Interventions - Exercise/Activities/Manual Therapy Exercises/Activities: Patient was reassessed by PT today. She has a continuation order and will resume progression of therex to L UE. PROM/AAROM for L shoulder in supine all directions. Manual isometrics for FLEX/ABD/ER/IR/ EXT 2x5. AAROM with 1# wand for bilateral shoulder flexion and chest presses x 10. Active reaching with elbow flexed and then extended x 8. Returned to AAROM all dir and gentle stretching for Flexion, horizontal ABD, scaption. Sitting EOB for AA shoulder flexion/ABD. 1# dumbell for wrist and elbow ROM x 15. 1# wand for bilateral shoulder abd x 5. Green tband scap retraction x 10. Standing against wall for postural support 1# wand for bilateral shoulder flexion and ABD/ER. Corner for modified pectoralis stretch. Total minutes of Exercise: 40 Manual Therapy: NA HOME EXERCISE PROGRAM: pendulum exercises, scapular elevation and retraction ( without moving left arm back), and left wrist and elbow AROM. - Charges Timed Code Treatment Minutes: 40 Total Treatment Time: 55 Procedures billed for this date of service:: cp, ex3 Assessment: Patient experiencing increased soreness to the L upper arm along the lateral portion related to reaching for paper towel roll at work. She demo improved tolerance to increased passive shoulder flexion and abd today. She is very compliant with working on HEP. She has a continuation order for further therapy and was reassessed today by our PT. Patient Education: Body/Joint mechanics, Home Exercise Program, Education of Plan of Care Patient demonstrates compliance with HEP?: Yes Short Term Goals Goal #1: Pt independent in HEP and compliant in surgical precautions. Goal to be met by: 01/09/19 Progress towards Goal:: Met Goal #2: Left shoulder passive flexion WFL's. Goal to be met by: 01/09/19 Progress towards Goal:: Met Goal #3: Pt to demonstrate good postural awareness. Goal to be met by: 11/03/18 Progress towards Goal:: Met Snf Goals Goal #1: Pt knows HEP and to continue ex's to maintain functional level at D/C. Goal to be met by: 02/16/19 Progress towards goal: Progressing Goal #2: Score on UE functional scale improved to 50% impairment or less. Goal to be met by: 02/16/19 Progress towards goal: Progressing Goal #3: Left shoulder AROM WFL's to perform all selfcare and ADL's. Goal to be met by: 02/16/19 Progress towards goal: Progressing Goal #4: Pt to report no pain with AROM of the left UE. Goal to be met by: 02/16/19 Progress towards goal: Progressing Plan Dates of Snf Goals: 02/16/19 Expiration date of current Insurance Approval:: 02/16/19 PLAN: Continue per reassessment today
--- NOTE | 2019-01-30 15:29 | RS.OPPTDN ---
Subjective Date of Note: 01/30/19 Visit #: 30 Number of visits approved by Insurance: na Date of Evaluation: 10/20/18 Payer Source: MEDICARE Treatment Diagnosis: Left shoulder pain, shoulder stiffness, s/p left Reverse TSA Current Subjective/complaints:: Patient reports muscle soreness today in L shoulder ,but no sharp pain present. *Precautions: Updated...pt has no restrictions. May perform A/PROM Pain Assessment - Pain Description Pain Location: L shoulder Pain Description: Dull, Aching Current Pain Intensity: not rated Interventions - Exercise/Activities/Manual Therapy Exercises/Activities: 50 mins. total of PROM toAAROM to AROM progression in all directions .Red theraband for IR/ER in neutral position,4 # wand in supine for chest press,2# for shoulder,seated scapular pro/retraction.3/10-15 reps. each ex. Total minutes of Exercise: 50 Manual Therapy: NA Total minutes of Manual Therapy: 0 HOME EXERCISE PROGRAM: pendulum exercises, scapular elevation and retraction ( without moving left arm back), and left wrist and elbow AROM. - Charges Timed Code Treatment Minutes: 50 Total Treatment Time: 50 Procedures billed for this date of service:: ex 3 Assessment: Patient has functionalmotion ,good traffic survey technician and bicep strength.The over head elevation in sitting is improving ,but fatigues easily past 90 degrees elevation ,with UT substitution present .She is motivated to improve. Patient Education: Home Exercise Program, Activity Modification, Education of Plan of Care Patient demonstrates compliance with HEP?: Yes Short Term Goals Goal #1: Pt independent in HEP and compliant in surgical precautions. Goal to be met by: 01/09/19 Progress towards Goal:: Met Goal #2: Left shoulder passive flexion WFL's. Goal to be met by: 01/09/19 Progress towards Goal:: Met Goal #3: Pt to demonstrate good postural awareness. Goal to be met by: 11/03/18 Progress towards Goal:: Met Contract Negotiation Specialist Goals Goal #1: Pt knows HEP and to continue ex's to maintain functional level at D/C. Goal to be met by: 02/16/19 Progress towards goal: Progressing Goal #2: Score on UE functional scale improved to 50% impairment or less. Goal to be met by: 02/16/19 Progress towards goal: Progressing Goal #3: Left shoulder AROM WFL's to perform all selfcare and ADL's. Goal to be met by: 02/16/19 Progress towards goal: Progressing Goal #4: Pt to report no pain with AROM of the left UE. Goal to be met by: 02/16/19 Progress towards goal: Progressing Plan Dates of Chcf Goals: 02/16/19 Expiration date of current Insurance Approval:: na PLAN: Cont. PT to maximize strength and motion in the L shoulder.
== END 2019-02-01 23:59 ==
PROVIDERS: ATTEND Orthopaedic Surgery
DX: M25.512 Pain in left shoulder (principal); M25.612 Stiffness of left shoulder, not elsewhere classified; M62.81 Muscle weakness (generalized); Z96.612 Presence of left artificial shoulder joint

== ENCOUNTER 2019-02-18 08:15 | Outpatient (RCR) ==
--- NOTE | 2019-02-03 09:58 | RS.OPPTDN ---
Subjective Date of Note: 02/03/19 Visit #: 31 Number of visits approved by Insurance: na Date of Evaluation: 10/20/18 Payer Source: MEDICARE Treatment Diagnosis: Left shoulder pain, shoulder stiffness, s/p left Reverse TSA Current Subjective/complaints:: No c/o,pleased with her progress.She is compliant to HEP. *Precautions: Updated...pt has no restrictions. May perform A/PROM Pain Assessment - Pain Description Pain Location: L shoulder. Pain Description: Dull, Aching, Chronic Current Pain Intensity: not rated Interventions - Exercise/Activities/Manual Therapy Exercises/Activities: 50 mins. total of PROM to AAROM to AROM progression in all directions .IR/ER in neutral position, then biceps curls with 2#,Isometrics in all directions.Seated rowing motion ,2/10 reps.Reviewed precautions for reverse shoulder. Total minutes of Exercise: 50 Manual Therapy: NA Total minutes of Manual Therapy: 0 HOME EXERCISE PROGRAM: pendulum exercises, scapular elevation and retraction ( without moving left arm back), and left wrist and elbow AROM. - Charges Timed Code Treatment Minutes: 50 Total Treatment Time: 50 Procedures billed for this date of service:: ex 3 Assessment: Progressing well,is very active and compliant to HEP.The strength and motion are both increasing .She understands the precautions for the reverse shoulder. Patient Education: Body/Joint mechanics, Home Exercise Program, Home Safety, Activity Modification Patient demonstrates compliance with HEP?: Yes Short Term Goals Goal #1: Pt independent in HEP and compliant in surgical precautions. Goal to be met by: 01/09/19 Progress towards Goal:: Met Goal #2: Left shoulder passive flexion WFL's. Goal to be met by: 01/09/19 Progress towards Goal:: Met Goal #3: Pt to demonstrate good postural awareness. Goal to be met by: 11/03/18 Progress towards Goal:: Met Cook'S Assistant Goals Goal #1: Pt knows HEP and to continue ex's to maintain functional level at D/C. Goal to be met by: 02/16/19 Progress towards goal: Met Goal #2: Score on UE functional scale improved to 50% impairment or less. Goal to be met by: 02/16/19 Progress towards goal: Progressing Goal #3: Left shoulder AROM WFL's to perform all selfcare and ADL's. Goal to be met by: 02/16/19 (seated active elevation is ~ 80 degrees today) Progress towards goal: Progressing Goal #4: Pt to report no pain with AROM of the left UE. Goal to be met by: 02/16/19 Progress towards goal: Progressing Plan Dates of Cook'S Assistant Goals: 02/16/19 Expiration date of current Insurance Approval:: na PLAN: Cont . skilled PT to maximize the motion and strength in the L shoulder , return to highest LOF.
--- NOTE | 2019-02-06 09:32 | RS.OPPTDN ---
Subjective Date of Note: 02/06/19 Visit #: 32 Number of visits approved by Insurance: na Date of Evaluation: 10/20/18 Payer Source: MEDICARE Treatment Diagnosis: Left shoulder pain, shoulder stiffness, s/p left Reverse TSA Current Subjective/complaints:: Patient reports she had a "stinging" sensation last night in the anterior detoid area while sitting at [employer] and again this morning,but feels this is possibly pushing up to get off of the mower. *Precautions: Updated...pt has no restrictions. May perform A/PROM Pain Assessment - Pain Description Current Pain Intensity: not rated Interventions - Exercise/Activities/Manual Therapy Exercises/Activities: 45 mins. total of PROM to AAROM to AROM progression in all directions .IR/ER with yellow t-band in neutral position, then biceps curls with 3#,Isometrics in all directions.Supine 3# wand exerises .of chest press , then overhead elevation Seated rowing motion .Reviewed precautions for reverse shoulder.All exercises are 3/10 - 15 reps each today. Total minutes of Exercise: 45 Manual Therapy: NA Total minutes of Manual Therapy: 0 HOME EXERCISE PROGRAM: pendulum exercises, scapular elevation and retraction ( without moving left arm back), and left wrist and elbow AROM. - Charges Timed Code Treatment Minutes: 45 Total Treatment Time: 45 Procedures billed for this date of service:: ex 3 Assessment: Patient progressimng well.He rgreatest limitation in sitting or standing is active elevation ,but the motion other directions is functional .She continues to be very active and motivted to achieve the highest LOF possible. Patient Education: Body/Joint mechanics, Home Exercise Program, Activity Modification Patient demonstrates compliance with HEP?: Yes Short Term Goals Goal #1: Pt independent in HEP and compliant in surgical precautions. Goal to be met by: 01/09/19 Progress towards Goal:: Met Goal #2: Left shoulder passive flexion WFL's. Goal to be met by: 01/09/19 Progress towards Goal:: Met Goal #3: Pt to demonstrate good postural awareness. Goal to be met by: 11/03/18 Progress towards Goal:: Met Assisted Goals Goal #1: Pt knows HEP and to continue ex's to maintain functional level at D/C. Goal to be met by: 02/16/19 Progress towards goal: Met Goal #2: Score on UE functional scale improved to 50% impairment or less. Goal to be met by: 02/16/19 Progress towards goal: Progressing Goal #3: Left shoulder AROM WFL's to perform all selfcare and ADL's. Goal to be met by: 02/16/19 (sested elevation is ~ 80 degrees) Progress towards goal: Progressing Comments: some substitution observed using the upper traps as she fatigues. Goal #4: Pt to report no pain with AROM of the left UE. Goal to be met by: 02/16/19 Progress towards goal: Progressing Plan Dates of Assisted Goals: 02/16/19 Expiration date of current Insurance Approval:: na PLAN: Cont. PT per reverse silvano protocol.
--- NOTE | 2019-02-09 09:32 | RS.OPPTDN ---
Subjective Date of Note: 02/09/19 Visit #: 33 Number of visits approved by Insurance: 35 Date of Evaluation: 10/20/18 Payer Source: MEDICARE Treatment Diagnosis: Left shoulder pain, shoulder stiffness, s/p left Reverse TSA Current Subjective/complaints:: Patient says she can tell she is gaining more active reaching and can reach behind her head better. She says that she is able to perform duties at work easier such as lifting and reaching for tea pot. *Precautions: Updated...pt has no restrictions. May perform A/PROM Interventions - Exercise/Activities/Manual Therapy Exercises/Activities: PROM to AAROM to AROM progression in all directions. Manual isometrics all directions 2x5. IR/ER with yellow t-band in neutral position, then biceps curls with 3#,3# sup/pron, wrist motions, x 15. Isometrics in all directions.Supine 3# wand exerises .of chest press ,then overhead elevation Sitting: AAROM all dir progressing to active shoulder flexion, rowing with 3# bar x 15. 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 Total minutes of Exercise: 42 Manual Therapy: NA HOME EXERCISE PROGRAM: pendulum exercises, scapular elevation and retraction ( without moving left arm back), and left wrist and elbow AROM. - Charges Timed Code Treatment Minutes: 42 Total Treatment Time: 42 Procedures billed for this date of service:: ex3 Assessment: Patient continues to demo low pain level throughout all functional AROM and PROM. She is able to show less fatigue with initiation of active elevation demo more control with weighted wand exercises overhead. Patient Education: Education of diagnosis, Education of Plan of Care Patient demonstrates compliance with HEP?: Yes Short Term Goals Goal #1: Pt independent in HEP and compliant in surgical precautions. Goal to be met by: 01/09/19 Progress towards Goal:: Met Goal #2: Left shoulder passive flexion WFL's. Goal to be met by: 01/09/19 Progress towards Goal:: Met Goal #3: Pt to demonstrate good postural awareness. Goal to be met by: 11/03/18 Progress towards Goal:: Met Customer Relations Specialist Goals Goal #1: Pt knows HEP and to continue ex's to maintain functional level at D/C. Goal to be met by: 02/16/19 Progress towards goal: Met Goal #2: Score on UE functional scale improved to 50% impairment or less. Goal to be met by: 02/16/19 Progress towards goal: Progressing Goal #3: Left shoulder AROM WFL's to perform all selfcare and ADL's. Goal to be met by: 02/16/19 (sested elevation is ~ 80 degrees) Progress towards goal: Progressing Goal #4: Pt to report no pain with AROM of the left UE. Goal to be met by: 02/16/19 Progress towards goal: Progressing Plan Dates of Snf Goals: 02/16/19 Expiration date of current Insurance Approval:: 02/16/19 PLAN: Continue progressing x 2 more sessions.
--- NOTE | 2019-02-12 09:50 | RS.OPPTDN ---
Subjective Date of Note: 02/12/19 Visit #: 34 Number of visits approved by Insurance: 35 Date of Evaluation: 10/20/18 Payer Source: MEDICARE Treatment Diagnosis: Left shoulder pain, shoulder stiffness, s/p left Reverse TSA Current Subjective/complaints:: Patient reports she has been working in her yard , repairing a/c, and replacing car battery with no pain and admits improved mobility allowing her to do more around the house and at work. She says her MD discharged her CAM boot Saturday and has had improved ease amb. *Precautions: Updated...pt has no restrictions. May perform A/PROM Interventions - Exercise/Activities/Manual Therapy Exercises/Activities: PROM to AAROM to AROM progression in all directions. Manual isometrics all directions 2x5. IR/ER with red t-band in neutral position , then biceps curls with 3#,3# sup/pron, wrist motions, x 15. Bilateral IR Isometrics using ball x 12. Supine 4 1/2# wand exerises of chest press ,then overhead elevation 2x15. Sitting: AAROM all dir progressing to active shoulder flexion, 3# wand for bilateral shoulder flexion x 10, rowing with green tband on bar x 15. Sitting: reaching (bilateral UE) out to hold ball and hit HYDRAULIC BILLET MAKER hand using cross body motions and scaption/elevation directions Standing at shelf functional reaching for cones above head and stacking/ unstacking and returning to trunk level x 10 reps. UBE x 2 mins forward, 1 reverse with moderate resistance. Reviewed precautions and goals for her diagnosis regaring ROM/strength/function. Total minutes of Exercise: 38 Manual Therapy: NA HOME EXERCISE PROGRAM: pendulum exercises, scapular elevation and retraction ( without moving left arm back), and left wrist and elbow AROM. - Charges Timed Code Treatment Minutes: 38 Total Treatment Time: 38 Procedures billed for this date of service:: ex3 Assessment: Patient lida improved control with active L shoulder reaching in supine and in sitting. She is able to reach for cones in standing above head without pain and much less compensation than in recent weeks. She is able to return to many yard tasks and continues to work at 2 jobs. She is very motivated and active rachello improved strength and motion. Patient Education: Body/Joint mechanics, Home Exercise Program, Education of Plan of Care Patient demonstrates compliance with HEP?: Yes Short Term Goals Goal #1: Pt independent in HEP and compliant in surgical precautions. Goal to be met by: 01/09/19 Progress towards Goal:: Met Goal #2: Left shoulder passive flexion WFL's. Goal to be met by: 01/09/19 Progress towards Goal:: Met Goal #3: Pt to demonstrate good postural awareness. 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 Goal to be met by: 02/16/19 Progress towards goal: Met Goal #2: Score on UE functional scale improved to 50% impairment or less. Goal to be met by: 02/16/19 Progress towards goal: Progressing Comments: Reassess next session Goal #3: Left shoulder AROM WFL's to perform all selfcare and ADL's. Goal to be met by: 02/16/19 (sested elevation is ~ 80 degrees) Progress towards goal: Progressing Goal #4: Pt to report no pain with AROM of the left UE. Goal to be met by: 02/16/19 Progress towards goal: Progressing Plan Dates of Tool Room Machinist Goals: 02/16/19 Expiration date of current Insurance Approval:: 02/16/19 PLAN: Patient to continue x 1 more session per reassessment
--- NOTE | 2019-02-16 09:47 | RS.OPPTDN ---
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 She says she is also able to push her window screen up using her L arm. *Precautions: Updated...pt has no restrictions. May perform A/PROM Interventions - Exercise/Activities/Manual Therapy Exercises/Activities: PROM to AAROM to AROM progression in all directions. Manual isometrics all directions 2x5. IR/ER with red t-band in neutral position , then biceps curls with 3#,3# sup/pron, wrist motions, x 15. Bilateral IR Isometrics using ball x 12. Supine 4 1/2# wand exerises of chest press ,then overhead elevation 2x15. Sitting: AAROM all dir progressing to active shoulder flexion, 3 1/2# wand for bilateral shoulder flexion x 10, rowing with green tband on bar x 15. 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 UBE x 2 mins forward, 1 reverse with moderate resistance. Standing: green tband for L shoulder extension x12. Reviewed precautions and goals for her diagnosis regaring ROM/strength/function. Total minutes of Exercise: 38 Manual Therapy: NA HOME EXERCISE PROGRAM: pendulum exercises, scapular elevation and retraction ( without moving left arm back), and left wrist and elbow AROM. - Charges Timed Code Treatment Minutes: 38 Total Treatment Time: 38 Procedures billed for this date of service:: ex3 Assessment: Patient continues to make gains with functional tasks at home/work. She is able to elevate the L UE higher with less compensation. Maintaining no pain at this point and mm fatigue/soreness following therex today was significantly reduced ~2-3 mins after completion of activities and admitted by the time she walks to her car, it will be gone. Patient Education: Body/Joint mechanics, Home Exercise Program, Education of Plan of Care Patient demonstrates compliance with HEP?: Yes Short Term Goals Goal #1: Pt independent in HEP and compliant in surgical precautions. Goal to be met by: 01/09/19 Progress towards Goal:: Met Goal #2: Left shoulder passive flexion WFL's. Goal to be met by: 01/09/19 Progress towards Goal:: Met Goal #3: Pt to demonstrate good postural awareness. Goal to be met by: 11/03/18 Progress towards Goal:: Met Guard Lieutenant Goals Goal #1: Pt knows HEP and to continue ex's to maintain functional level at D/C. Goal to be met by: 02/16/19 Progress towards goal: Met Goal #2: Score on UE functional scale improved to 50% impairment or less. Goal to be met by: 02/16/19 Progress towards goal: Progressing Goal #3: Left shoulder AROM WFL's to perform all selfcare and ADL's. Goal to be met by: 02/16/19 (sested elevation is ~ 80 degrees) Progress towards goal: Progressing Goal #4: Pt to report no pain with AROM of the left UE. Goal to be met by: 02/16/19 Progress towards goal: Progressing Plan Dates of Guard Lieutenant Goals: 02/16/19 Expiration date of current Insurance Approval:: 02/16/19 PLAN: Patient is to return to the ortho this . She has completed continuation order at this time.
--- NOTE | 2019-02-18 11:32 | RS.CSNOTE ---
PT Case Note Date of Note: 02/18/19 Title of document: Case Note Note: Patient assessed today for final visit: UE Functional Index reveals score of 68/80 or 15% impairmenet (Eval was 3/80 or 96% impairment). She demo only little difficulty or none on all but one area, which is "lifting a bag of groceries above head." She demo improved ROM including supine AA Flexion to 134 degrees, ABD to 105 degrees, ER to 43 degrees, IR to 60 degrees. Sitting AROM: Flexion 96 degrees, then 2nd attempt 109 degrees. ABD to 84 degrees. Functionally, patient able to IR to just above waistline and ER to C7. Export Traffic Department Manager: L (involved) 37#, R (dominant) 46#. Patient admits the only difficulty she has with L UE is pulling her pants up when just using the L UE. Otherwise, she is able to sweep, vacuum, perform grooming activities , driving, and work duties without any difficulty or pain isolating the L arm. She is pleased with her motion and strength at this point and has met all goals from recent reassessment by PT. Patient to return to ortho MD tomorrow and suggest Discharge as we have established new goals with continuation order and they have been met. Patient was strongly encouraged to continue with using ice and HEP. Short Term Goals. Goal #1: Pt independent in HEP and compliant in surgical precautions. Goal to be met by: 01/09/19. Progress towards Goal:: MET. Goal #2: Left shoulder passive flexion WFL's. Goal to be met by: . Progress towards Goal:: MET. Goal #3: Pt to demonstrate good postural awareness. Goal to be met by: 11/03/18. Progress towards Goal:: MET. Correction Goals. Goal #1: Pt knows HEP and to continue ex's to maintain functional level at D/C. Goal to be met by: 02/16/19. Progress towards goal: MET. Goal # 2: Score on UE functional scale improved to 50% impairment or less. Goal to be met by: 02/16/19. Progress towards goal: MET (15% ASSESSED TODAY). Goal #3: Left shoulder AROM WFL's to perform all selfcare and ADL's. Goal to be met by: 02/16/19 (seated elevation is ~ 96 then 109 degrees with 2nd attempt). Progress towards goal: MET. Goal #4: Pt to report no pain with AROM of the left UE. (SLIGHT FATIGUE ONLY). Goal to be met by: 02/16/19. Progress towards goal: MET (ASSESSED TODAY) Number of visits approved by Insurance: 35 Expiration date of current Insurance Approval:: 35, 02/16/19
== END 2019-03-03 23:59 ==
PROVIDERS: ATTEND Orthopaedic Surgery
DX: M25.512 Pain in left shoulder (principal); M25.612 Stiffness of left shoulder, not elsewhere classified; M62.81 Muscle weakness (generalized); Z96.612 Presence of left artificial shoulder joint

== ENCOUNTER 2019-03-03 08:17 | Outpatient (CLI) ==
--- NOTE | 2019-03-04 10:48 | MAMMO ---
EXAM: Bilateral digital screening mammogram (2-D and 3-D) History: Screening Comparison: Bilateral mammogram 07/23/2012 Findings: MLO and CC views of bilateral breasts demonstrate scattered fibroglandular breast parenchy ma. CAD was reviewed by the radiologist. Tomosynthesis was performed. Stable benign bilateral vasc ular calcifications. There are no dominant masses, no suspicious microcalcifications and no architec tural distortions Impression: Benign stable mammogram. Recommend followup routine screening mammography in 1 year. BIRADS 2, benign
== END 2019-03-03 08:18 | disposition home or self-care (01) ==
LOC: RAD 08:17
PROVIDERS: ATTEND Internal Medicine
DX: Z12.31 Encounter for screening mammogram for malignant neoplasm of breast (principal)

== ENCOUNTER 2019-03-17 06:33 | Day surgery (SDC) ==
[2019-03-17 07:00] VITALS: TEMP 98.4
[2019-03-17] MEDS ORDERED: LIDOCAINE 1% 20 ML MDV ID STA (07:00)
[2019-03-17] MEDS ORDERED: VERSED ONE (08:15)
[2019-03-17] MEDS ORDERED: DIPRIVAN 20 ML VIAL IVP ONE (08:15)
[2019-03-17 15:08] VITALS: BP 132/78
--- NOTE | 2019-03-18 07:49 | OP ---
INDICATIONS FOR PROCEDURE: 73-year-old female presents for a screening colonoscopy exam. MEDICATIONS: SEE ANESTHESIA NOTES. PROCEDURE: COLONOSCOPY. REPORT: The risks, benefits, alternatives and limitations were discussed in detail with the patient. Informed consent was obtained. After adequate sedation was achieved, a digital rectal exam revealed good tone, no masses. The colonoscope was introduced into the rectum and advanced under direct visual guidance to the cecum. The cecum was identified by the appendiceal orifice and IC valve. I then slowly withdrew the scope in a circumferential manner examining the mucosa quite carefully. I looked on the proximal and distal side of folds and flexures as best as possible. I was able to retroflex the scope in the right colon as well as the left colon to increase visualization. I noted diverticulosis scattered throughout the entire colon. There was small and large bowel diverticula present. On retroflex view of the anal canal there are small nonengorged internal hemorrhoids. No other abnormalities were noted. The prep was good. The withdrawal time was 9 minutes and 9 seconds. The patient tolerated the procedure well with stable vital signs and pulse oximetry throughout. IMPRESSION: 1. [place]an diverticulosis. 2. Small non engorged internal hemorrhoid. RECOMMENDATIONS: 1. High fiber diet. 2. Office visit as needed. 3. Future colonoscopies on an as needed only basis. CC: DR. KIKE BERRY
== END 2019-03-17 09:25 | disposition home or self-care (01) ==
LOC: SURG 06:33
PROVIDERS: ATTEND Internal Medicine Gastroenterology
DX: Z12.11 Encounter for screening for malignant neoplasm of colon (principal); K57.90 Diverticulosis of intestine, part unspecified, without perforation or abscess without bleeding; K64.8 Other hemorrhoids

== ENCOUNTER 2019-08-30 22:11 | Inpatient (IN) ==
[2019-08-30] MEDS ORDERED: SODIUM CHLORIDE 1,000 ML IV STA (23:36)
--- NOTE | 2019-08-30 23:36 | ED.PDOC ---
General ED Provider: Dr. FABIO CONNORS Chief Complaint: Dizziness Stated Complaint: Dizziness that started tonight at 8 pm, Previously it has been due to low blood glucose. Also complains of Double vision while standing talking to someone. Dizziness is worse with moving head. Time Seen by Physician: 23:34 Mode of Arrival: Walk-In Information Source: Patient Primary Care Provider: DARSHAN ASIF Nursing and Triage Documentation Reviewed and Agree: Yes Does patient meet sepsis criteria?: No System Inflammatory Response Syndrome: Not Applicable Sepsis Protocol: For patient's 13 years and over: Temp is 96.8 and below OR 101 and greater Pulse >90 BPM Resp >20/minute Acutely Altered Mental Status Are patient's symptoms suggestive of a new infection, such as: -Pneumonia -Skin, Soft Tissue -Endocarditis -UTI -Bone, Joint Infection -Implantable Device -Acute Abdominal Infection -Wound Infection -Meningitis -Blood Stream Catheter Infection -Unknown Review of Systems Review Of Systems Constitutional: Denies Loss of appetite Eyes: Reports Vision change Cardiac: Reports Lightheadedness All Other Systems: Reviewed and Negative [facility] Medical History (Updated 08/31/19 @ 07:58 by WILLEM WINTERS) Unstable reverse total shoulder arthroplasty (Acute) Hyperlipemia (Acute) Anemia (Acute) Family History (Updated 08/31/19 @ 02:46 by YOLETTE BURRIS RN) Father Heart attack Mother Lung cancer Social History (Updated 08/31/19 @ 02:46 by YOLETTE BURRIS RN) Do you feel safe at home: Yes History of physical abuse: No History of emotional abuse: No History of sexual abuse: No Smoking and tobacco status: Never smoker Alcohol intake: never Alyson/orthodoxy: Protistant Special alyson needs: Yes (does not eat pork) Agree to transfusion: Yes Are you now , , , , never or living with a partner?: Social isolation score (0-1 are the most socially isolated patients): 0 Household members: none Housing: house Current occupational status: employed 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 Current occupational exposures/hazards: No Pets and animals: Yes Pets and animals: dog(s) History of recent travel: No Sexually active: No Do you think of yourself as: straight/heterosexual Current gender identity: female Current diet type/program: gluten free Well-balanced diet: about half the time Caffeine: Yes Caffeine intake frequency: coffee Water heater temperature set < 120 degrees: Yes Working smoke detector in home: Yes Fire extinguisher in home: Yes Carbon monoxide detector in home: Yes Firearms in home: Yes Firearms unloaded and locked: Yes What type of physical activity do you participate in?: walking Physical activity functional status: independent ambulation Physical Exam Physical Exam Appearance: Well-appearing Ill-appearing: None Pain Distress: None Eyes: SAMIA and EOMI Neck: Supple Respiratory: Airway patent, Breath sounds clear and Breath sounds equal Cardiovascular: RRR, Pulses normal, No rub and No murmur GI/: Soft, Nontender and No masses Musculoskeletal: Normal strength and ROM intact Skin: Warm, Dry and Normal color Neurological: Sensation intact, Motor intact, Reflexes intact, Cranial nerves intact, Alert and Oriented Psychiatric: Anxious NIH Stroke Scale 1a. Level of Consciousness: 0=Alert and keenly responsive 1b. Level of Consciousness Questions: 0=Answers correctly to two questions 1c. Level of Consciousness Commands: 0=Performs two tasks correctly 2. Best Gaze: 0=Normal 3. Visual: 0=No visual loss 4. Facial Palsy: 0=Normal 5a. Motor Left Arm: 0=No drift,arm holds 90 degrees for 10 sec., leg 30 degrees for 5 sec. 5b. Motor Right Arm: 0=No drift,arm holds 90 degrees for 10 sec., leg 30 degrees for 5 sec. 6a. Motor Left Le=No drift,arm holds 90 degrees for 10 sec., leg 30 degrees for 5 sec. 6b. Motor Right Le=No drift,arm holds 90 degrees for 10 sec., leg 30 degrees for 5 sec. 7. Limb Ataxia: 0=Absent 8. Sensory: 0=Normal 9. Best Language: 0=No aphasia 10. Dysarthria: 0=Normal 11. Extincion and Inattention: 0=Normal Stroke Scale Total: 0 Interpretation Radiology Interpretation Radiology Interpretation By: Radiologist Radiology Results: Negative Exam Interpreted: Portable CXR and CT Scan Physical Fitness Teacher Rate: Param Rhythm: Sinus Ectopy: None EKG Interpretation Time of EKG #1: 23:44 Rate: Param (rate 46) Rhythm: Sinus Ectopy: None Interpretation: posterior infarct age undetermined Re-Evaluation Re-Evaluation Time of Re-Evaluation: 01:50 Status: Improved (no more double vision) Physician Notification Case Discussed Physician Notified: Dr Asif Time of Notification: 01:50 Critical Care Note Critical Care Note Total Time (mins): 0 Course Course Hematology/Chemistry: 09/01/19 04:40 09/01/19 04:40 Orders, Labs, Meds: Lab Review 08/30/19 08/30/19 23:44 23:44 WBC 7.06 RBC 4.23 Hgb 12.4 Hct 38.7 MCV 91.5 MCH 29.3 MCHC 32.0 RDW Coeff of Roby 14.6 Plt Count 263 Immature Gran % (Auto) 0.4 Neut % (Auto) 65.4 Lymph % (Auto) 21.0 [place] % (Auto) 9.9 Eos % (Auto) 2.5 Baso % (Auto) 0.8 Immature Gran # (Auto) 0.0 Neut # (Auto) 4.6 Lymph # (Auto) 1.5 [place] # (Auto) 0.7 Eos # (Auto) 0.2 Baso # (Auto) 0.1 Sodium 139.1 Potassium 4.53 Chloride 103.1 Carbon Dioxide 31.8 H Anion Gap 8.73 BUN 20.6 H Creatinine 0.91 Estimated GFR (MDRD) 60.00 BUN/Creatinine Ratio 22.63 Glucose 111.0 H Calcium 8.85 Total Bilirubin 0.34 AST 24.0 ALT 14.1 Alkaline Phosphatase 94.2 Total Creatine Kinase 65.8 Troponin I < 0.012 Total Protein 7.69 Albumin 4.15 Globulin 3.54 Albumin/Globulin Ratio 1.17 Orders Category Date Time Status ECHOCARDIOGRAM 2D-M MODE Routine CARDIO 09/01/19 08:00 Completed EKG-(ED ONLY) Stat CARDIO 08/30/19 23:36 Completed EKG-(IP & OP ONLY) Routine CARDIO 08/31/19 07:00 Completed ACTIVITY .Early Mobilization for VTE Prevention CARE 08/31/19 01:56 Completed INTAKE & OUTPUT Q8HR CARE 08/31/19 01:56 Completed VITAL SIGNS Q4HR CARE 08/31/19 01:56 Completed ED MUD LOGGER APPLIED .ONCE EMERGENCY 08/30/19 23:36 Active ED IV/MEDIPORT/POWERPORT .ONCE EMERGENCY 08/30/19 23:36 Active CBC W/ AUTO DIFF DAILY@0600 LAB 08/31/19 04:43 Completed CBC W/ AUTO DIFF DAILY@0600 LAB 09/01/19 04:40 Completed CBC W/ AUTO DIFF Stat LAB 08/30/19 23:44 Completed COMPREHENSIVE METABOLIC PANEL DAILY@0600 LAB 08/31/19 04:43 Completed COMPREHENSIVE METABOLIC PANEL DAILY@0600 LAB 09/01/19 04:40 Completed COMPREHENSIVE METABOLIC PANEL Stat LAB 08/30/19 23:44 Completed CREATINE KINASE Q8H LAB 08/31/19 08:02 Completed CREATINE KINASE Q8H LAB 08/31/19 15:55 Completed CREATINE KINASE Stat LAB 08/30/19 23:44 Completed TROPONIN I Q8H LAB 08/31/19 08:02 Completed TROPONIN I Q8H LAB 08/31/19 15:55 Completed TROPONIN I Stat LAB 08/30/19 23:44 Completed 0.9 % Sodium Chloride [Saline Flush] MEDS 08/30/19 23:36 Discontinued 1 syr IVF PRN PRN Acetaminophen [Tylenol] MEDS 08/31/19 01:56 Discontinued 650 mg PO Q4H PRN Enoxaparin Sodium [Lovenox] MEDS 08/31/19 09:00 Discontinued 40 mg SUBCUT DAILY Ondansetron HCl/Pf [Zofran 4 mg/2 ml] MEDS 08/31/19 01:56 Discontinued 4 mg IVP Q6H PRN Sodium Chloride 0.9% [Sodium Chloride] 1,000 ml MEDS 08/30/19 23:36 Discontinued IV 500 mls/hr Sodium Chloride 0.9% [Sodium Chloride] 1,000 ml MEDS 08/31/19 02:00 Discontinued IV 75 mls/hr RESUSCITATION STATUS Routine OTHERS 08/31/19 01:56 Completed CHEST, 1V AP ONLY Stat RADS 08/30/19 23:[address] HEAD W/O CONTRAST Stat RADS 08/30/19 23:20 Completed Medications Discontinued Medications Generic Name Dose Route Start Last Admin Trade Name Freq PRN Reason Stop Dose Admin Acetaminophen 650 mg 08/31/19 01:56 Tylenol PO Q4H PRN Fever >101 Amlodipine Besylate 5 mg 08/31/19 14:41 08/31/19 15:17 Norvasc PO 08/31/19 14:42 5 mg ONCE STA Administration Amlodipine Besylate 5 mg 08/31/19 21:00 08/31/19 20:20 Norvasc PO 08/31/19 21:01 5 mg ONCE ONE Administration Enoxaparin Sodium 40 mg 08/31/19 09:00 09/01/19 09:10 Lovenox SUBCUT Not Given DAILY MARC Furosemide 20 mg 08/31/19 14:41 08/31/19 15:18 Lasix IVP 08/31/19 14:42 20 mg ONCE STA Administration Sodium Chloride 1,000 mls @ 500 mls/hr 08/30/19 23:36 08/31/19 00:18 Sodium Chloride IV 08/31/19 01:35 500 mls/hr .Q2H STA Administration Sodium Chloride 1,000 mls @ 75 mls/hr 08/31/19 02:00 08/31/19 05:07 Sodium Chloride IV 75 mls/hr .[id number] MARC Administration Losartan Potassium 50 mg 08/31/19 09:00 08/31/19 20:20 Cozaar PO 50 mg BID MARC Administration Nebivolol 5 mg 08/31/19 09:00 Bystolic PO DAILY MARC Nebivolol 5 mg 08/31/19 09:00 08/31/19 09:44 Bystolic PO 08/31/19 09:01 5 mg ONCE ONE Administration Ondansetron HCl 4 mg 08/31/19 01:56 Zofran 4 Mg/2 Ml IVP Q6H PRN Nausea / Vomiting Sodium Chloride 1 syr 08/30/19 23:36 Saline Flush IVF PRN PRN To flush IV Sodium Chloride 1 syr 08/31/19 13:00 09/01/19 13:24 Saline Flush IVF Not Given Q8HR MARC Solifenacin 5 mg 08/31/19 09:00 08/31/19 09:44 Vesicare PO Not Given DAILY MARC Solifenacin 5 mg 08/31/19 21:00 08/31/19 20:20 Vesicare PO 5 mg BEDTIME MARC Administration Vital Signs: Temp Pulse Resp BP Pulse Ox 08/30/19 23:21 164/109 H 08/30/19 23:20 174/75 H 08/30/19 23:19 186/80 H 08/30/19 23:00 98.1 F 63 20 167/81 H 95 Discharge Plan Discharge Patient Disposition: ADMITTED INPATIENT Discharge Problem: Brain TIA, Dizziness Additional Instructions: DIET REGULAR RESUME TOLERATED PER YOUR PREFERENCES GLUTEN FREE AND NO PORK ACTIVITY TOLERATED DO NOT DRIVE IF EXPERIENCING DIZZINESS, DOUBLE VISION OR BLURRED VISION AND PRESENT TO NEAREST EMERGENCY ROOM FOLLOW UP WITH AN OFFICE VISIT WITH DR ASIF / LENIN COLLAZO APRN ON SEPTEMBER 08, AT 930 AM CONTINUE MEDS LISTED PER DISCHARGE MEDICATION SHEET ED Provider: FABIO CONNORS Condition: Good Discharge Date/Time: 08/31/19 02:21
--- NOTE | 2019-08-30 23:48 | CT ---
EXAM: CT head without contrast. HISTORY: Dizziness. PROCEDURE: Contiguous axial CT images of the head without contrast with coronal and sagittal reforma ts. FINDINGS: There is mild diffuse cerebral atrophy. The ventricles and basal cisterns are normal in si ze and configuration. No evidence of mass or midline shift. No intracranial hemorrhage or evidence of large vessel infarct. No extra-axial fluid collection. The paranasal sinuses and mastoid air bruce ls are well-aerated and normal in appearance. Impression: No intracranial hemorrhage or evidence of large vessel infarct. Mild diffuse cerebral atrophy.
--- NOTE | 2019-08-31 | DI ---
EXAM: AP single view of the chest. HISTORY: Dizziness. FINDINGS: There is a left shoulder arthroplasty. The cardiac silhouette is enlarged. The pulmonary vasculature is within normal limits. The costophrenic angles are clear. There are calcified granul omas. No infiltrate or consolidation. Impression: Cardiomegaly.
[2019-08-31] MEDS ORDERED: ZOFRAN 4 MG/2 ML IVP PRN (01:56)
[2019-08-31] MEDS ORDERED: TYLENOL PO PRN (01:56)
[2019-08-31] MEDS ORDERED: SODIUM CHLORIDE 1,000 ML IV SCH (02:00)
[2019-08-31 03:00] VITALS: BMI 32.8
[2019-08-31] MEDS ORDERED: BYSTOLIC PO SCH (09:00)
[2019-08-31] MEDS ORDERED: BYSTOLIC PO ONE (09:00)
[2019-08-31] MEDS ORDERED: VESICARE PO SCH ×2 (09:00→21:00)
--- NOTE | 2019-08-31 09:06 | PCM.PROG ---
Attending Provider: ATTENDING PROVIDER: Dr. DARSHAN STOKES This patient is seen with Jerri Hernandez, Nurse Practitioner. DATE OF SERVICE: 08/31/19 SUBJECTIVE: This 74 year old /WHITE F was hospitalized 08/31/19. The patient is complaining of headache this morning. No double vision. CT scan of the head was negative. Will do carotid scan this morning. REVIEW OF SYSTEMS: CONSTITUTIONAL: No night sweats. No fatigue, malaise, lethargy. No fever or chills. HEENT: Eyes: No visual changes. No eye pain. No eye discharge. ENT: No runny nose. No epistaxis. No sinus pain. No odynophagia. No congestion. RESPIRATORY: No cough, no congestion. No hemoptysis. No shortness of breath. CARDIOVASCULAR: No angina symptoms. No CHF symptoms. No atypical chest pain for CAD. No palpitations. No orthopnea.. GASTROINTESTINAL: No abdominal pain. No nausea or vomiting. No diarrhea or cons tipation. No hematemesis. No hematochezia. GENITOURINARY: No urgency. No frequency. No dysuria. No hematuria. No obstructive symptoms. No discharge. No pain. No significant abnormal bleeding. MUSCULOSKELETAL: No musculoskeletal pain; no joint swelling. NEUROLOGICAL: Awake, alert, oriented to time, place and person. Headache. No neck pain. No syncope. No seizures. No dizziness. PSYCHIATRIC: Not anxious. No depression. No suicidal thoughts. No homicidal thoughts. SKIN: No rash. No lesions. No wounds. ENDOCRINE: No unexplained weight loss. No weight gain. HEMATOLOGIC/LYMPHATIC: No anemia. No purpura. No petechiae. No prolonged or excessive bleeding. No palpable lymph nodes. PHYSICAL EXAMINATION: GENERAL: The patient is awake, alert and oriented, lying in bed in no distress. VITAL SIGNS: Temperature 98.6 F, Pulse 85, Respiratory Rate 14, BP 156/77, Pulse Ox 96% HEENT: Head normocephalic, atraumatic. Eyes: Extraocular muscles are intact. Pupils are equal, round and reactive to light and accommodation. Ears: No lesions. Nose appeared normal. Throat: No exudate or erythema. NECK: Supple. No JVD, no carotid bruit. No lymphadenopathy or thyromegaly. LUNGS: Diminished breath sounds. Clear to auscultation. Percussion note normal. Chest symmetrical. HEART: S1, S2, no S3. No murmurs. No cyanosis or clubbing. No ascites. Pulses: Dorsalis pedis and posterior tibial pulses +1 to +2 both sides. ABDOMEN: Soft. Non-tender. Bowel sounds active. No CVA tenderness. No mass felt. EXTREMITIES: No edema. Full range of motion of all extremities, equal. NEUROLOGIC: No focal deficit. Cranial nerves II through XII are grossly intact. No headache, no double vision or headache. SKIN: Not dry. Intact. Turgor-normal. LYMPHATIC: No palpable lymph nodes/no lymphedema. MUSCULOSKELETAL: Normal joints with no swelling. Muscle tone is normal. LAB REVIEW: 08/31/19 04:43 08/31/19 04:43 08/31/19 04:43: Sodium 137.9, Potassium 4.09, Chloride 106.2, Carbon Dioxide 28.3, Anion Gap 7.49, BUN 16.5, Creatinine 0.70, Estimated GFR (MDRD) 82.00, BUN/Creatinine Ratio 23.57, Glucose 96.9, Calcium 8.47, Total Bilirubin 0.41, AST 23.6, ALT 12.9, Alkaline Phosphatase 76.0, Total Protein 6.67, Albumin 3.52, Globulin 3.15, Albumin/Globulin Ratio 1.11 08/31/19 04:43: WBC 4.78, RBC 4.06 L, Hgb 11.9 L, Hct 37.1, MCV 91.4, MCH 29.3, MCHC 32.1, RDW Coeff of Roby 14.3, Plt Count 247, Immature Gran % (Auto) 0.2, Neut % (Auto) 51.9, Lymph % (Auto) 29.5, [place] % (Auto) 12.8 H, Eos % (Auto) 4.8, Baso % (Auto) 0.8, Immature Gran # (Auto) 0.0, Neut # (Auto) 2.5, Lymph # (Auto) 1.4, [place] # (Auto) 0.6, Eos # (Auto) 0.2, Baso # (Auto) 0.0 08/30/19 23:44: Sodium 139.1, Potassium 4.53, Chloride 103.1, Carbon Dioxide 3 1.8 H, Anion Gap 8.73, BUN 20.6 H, Creatinine 0.91, Estimated GFR (MDRD) 60.00, BUN/Creatinine Ratio 22.63, Glucose 111.0 H, Calcium 8.85, Total Bilirubin 0.34, AST 24.0, ALT 14.1, Alkaline Phosphatase 94.2, Total Creatine Kinase 65.8, Tr oponin I < 0.012, Total Protein 7.69, Albumin 4.15, Globulin 3.54, Albumin/Globulin Ratio 1.17 08/30/19 23:44: WBC 7.06, RBC 4.23, Hgb 12.4, Hct 38.7, MCV 91.5, MCH 29.3, MCHC 32.0, RDW Coeff of Roby 14.6, Plt Count 263, Immature Gran % (Auto) 0.4, Neut % (Auto) 65.4, Lymph % (Auto) 21.0, [place] % (Auto) 9.9, Eos % (Auto) 2.5, Baso % (Auto) 0.8, Immature Gran # (Auto) 0.0, Neut # (Auto) 4.6, Lymph # (Auto) 1.5, [place] # (Auto) 0.7, Eos # (Auto) 0.2, Baso # (Auto) 0.1 ASSESSMENT: Please see below. 1. Hypertension 2. Vision disturbances 3. Questionable TIA PLAN: 1. Losartan 50mg BID 2. U/A 3. Bystolic 5mg this morning 4. Bilateral carotid scan 5. Discontinue IV fluids Plan and coordination of the patient's care discussed in the presence of Copper Tapper and nurse. SCRIBED BY: Ambar BARCENAS scribed while in presence of service performed by Dr. Stokes/Jerri Hernandez APRN on 08/31/19 ([id number])
[2019-08-31] MEDS: COZAAR PO SCH ×2 (09:44→20:20)
[2019-08-31] MEDS: LOVENOX SUBCUT SCH (09:49)
[2019-08-31] MEDS ORDERED: NORVASC PO STA (14:41)
[2019-08-31] MEDS ORDERED: LASIX IVP STA (14:41)
--- NOTE | 2019-08-31 15:44 | US ---
EXAM: ULTRASOUND CAROTID DUPLEX, BILATERAL HISTORY: Dizziness FINDINGS: Gutierrez-scale ultrasound, color Doppler and spectral analysis was performed. Velocities are in meters per second. By gutierrez scale and color Doppler imaging, there were regions of heterogeneous plaque formation identi fied within the carotid bulbs and internal carotid arteries. These regions of plaque appeared to rem ain less than 50% vessel diameter. RIGHT: External carotid artery peak systolic velocity: 0.90 Common carotid artery peak systolic velocity/end diastolic velocity: 0.70/0.11 Internal carotid artery peak systolic velocity: 0.89 ICA/CCA peak systolic velocity ratio: 1.3 ICA end diastolic velocity: 0.18 LEFT: External carotid artery peak systolic velocity: 0.57 Common carotid artery peak systolic velocity/end diastolic velocity: 0.51/0.12 Internal carotid artery peak systolic velocity: 0.9 ICA/CCA peak systolic velocity ratio: 1.8 ICA end diastolic velocity: 0.21 The right and left vertebral arteries were antegrade. IMPRESSION: 1. By gutierrez scale and color Doppler imaging, there were regions of heterogeneous plaque formation id entified within the carotid bulbs and internal carotid arteries. These regions of plaque appeared to remain less than 50% vessel diameter. 2. Internal carotid artery peak systolic velocities and ICA/CCA peak systolic velocity ratios indica te no hemodynamically significant stenosis bilaterally. 3. Both vertebral arteries were antegrade.
[2019-08-31] MEDS ORDERED: NORVASC PO ONE (21:00)
[2019-09-01] MEDS: LOVENOX SUBCUT SCH (09:10)
--- NOTE | 2019-09-01 09:12 | PCM.PROG ---
Attending Provider: ATTENDING PROVIDER: Dr. DARSHAN STOKES This patient is seen with Jerri Hernandez, Nurse Practitioner. DATE OF SERVICE: 09/01/19 SUBJECTIVE: This 74 year old /WHITE F was hospitalized 08/31/19. The patient reports no dizziness or headache. Carotid scan normal. Blood pressure has s ignificantly improved. She over two liters of output after Lasix REVIEW OF SYSTEMS: CONSTITUTIONAL: No night sweats. No fatigue, malaise, lethargy. No fever or chills. HEENT: Eyes: No visual changes. No eye pain. No eye discharge. ENT: No runny nose. No epistaxis. No sinus pain. No odynophagia. No congestion. RESPIRATORY: No cough, no congestion. No hemoptysis. No shortness of breath. CARDIOVASCULAR: No angina symptoms. No CHF symptoms. No atypical chest pain for CAD. No palpitations. No orthopnea.. GASTROINTESTINAL: No abdominal pain. No nausea or vomiting. No diarrhea or constipation. No hematemesis. No hematochezia. GENITOURINARY: No urgency. No frequency. No dysuria. No hematuria. No obstructive symptoms. No discharge. No pain. No significant abnormal bleeding. MUSCULOSKELETAL: No musculoskeletal pain; no joint swelling. NEUROLOGICAL: Awake, alert, oriented to time, place and person. No headache. No neck pain. No syncope. No seizures. No dizziness. PSYCHIATRIC: Not anxious. No depression. No suicidal thoughts. No homicidal thoughts. SKIN: No rash. No lesions. No wounds. ENDOCRINE: No unexplained weight loss. No weight gain. HEMATOLOGIC/LYMPHATIC: No anemia. No purpura. No petechiae. No prolonged or excessive bleeding. No palpable lymph nodes. PHYSICAL EXAMINATION: GENERAL: The patient is awake, alert and oriented, lying in bed in no distress. VITAL SIGNS: Temperature 98.1 F, Pulse 53, Respiratory Rate 20, BP 104/60, Pulse Ox 96% HEENT: Head normocephalic, atraumatic. Eyes: Extraocular muscles are intact. Pupils are equal, round and reactive to light and accommodation. Ears: No lesions. Nose appeared normal. Throat: No exudate or erythema. NECK: Supple. No JVD, no carotid bruit. No lymphadenopathy or thyromegaly. LUNGS: Clear to auscultation. Percussion note normal. Chest symmetrical. HEART: S1, S2, no S3. No murmurs. No cyanosis or clubbing. No ascites. Pulses: Dorsalis pedis and posterior tibial pulses +1 to +2 both sides. ABDOMEN: Soft. Non-tender. Bowel sounds active. No CVA tenderness. No mass felt. EXTREMITIES: No edema. Full range of motion of all extremities, equal. NEUROLOGIC: No focal deficit. Cranial nerves II through XII are grossly intact. No headache, no double vision or headache. SKIN: Not dry. Intact. Turgor-normal. LYMPHATIC: No palpable lymph nodes/no lymphedema. MUSCULOSKELETAL: Normal joints with no swelling. Muscle tone is normal. LAB REVIEW: 09/01/19 04:40 09/01/19 04:40 09/01/19 04:40: Sodium 136.6, Potassium 4.17, Chloride 101.2, Carbon Dioxide 29.6, Anion Gap 9.97, BUN 20.9 H, Creatinine 0.89, Estimated GFR (MDRD) 62.00, BUN/Creatinine Ratio 23.48, Glucose 96.7, Calcium 9.09, Total Bilirubin 0.52, T 23.4, ALT 12.8, Alkaline Phosphatase 74.4, Total Protein 7.14, Albumin 3.83, Globulin 3.31, Albumin/Globulin Ratio 1.15 09/01/19 04:40: WBC 3.55 L, RBC 4.31, Hgb 12.5, Hct 39.3, MCV 91.2, MCH 29.0, MCHC 31.8, RDW Coeff of Roby 14.3, Plt Count 265, Immature Gran % (Auto) 0.3, Neut % (Auto) 39.7, Lymph % (Auto) 40.0, [place] % (Auto) 13.2 H, Eos % (Auto) 5.4, Baso % (Auto) 1.4, Immature Gran # (Auto) 0.0, Neut # (Auto) 1.4 L, Lymph # (Auto) 1.4, [place] # (Auto) 0.5, Eos # (Auto) 0.2, Baso # (Auto) 0.1 08/31/19 15:55: Total Creatine Kinase 67.9, Troponin I < 0.012 08/31/19 08:23: Urine Color Yellow, Urine Clarity Clear, Urine pH 8.0, Ur Specific [place] 1.015, Urine Protein Negative, Urine Glucose (UA) Negative, Urine Ketones Negative, Urine Blood Trace-lysed, Urine Nitrite Negative, Urine Bilirubin Negative, Urine Urobilinogen 0.2, Ur Leukocyte Esterase Negative, Urine Microscopic RBC 0-2, Ur Squamous Epith Cells 0-2 08/31/19 08:02: Total Creatine Kinase 71.0, Troponin I < 0.012 ASSESSMENT: Please see below. 1. Hypertension 2. Vision disturbances 3. Questionable TIA PLAN: 1. MRI of the brain this morning 2. Dr. Stokes to do echo 3. Anticipate discharge home today Plan and coordination of the patient's care discussed in the presence of Stroke Belt Sander Operator and nurse. SCRIBED BY: Ambar BARCENAS scribed while in presence of service performed by Dr. Stokes/Jerri Hernandez APRN on 09/01/19 ([id number])
--- NOTE | 2019-09-01 10:55 | HP ---
DATE OF SERVICE: 08/31/19 HISTORY OF PRESENT ILLNESS: 74-year-old white female presented to the emergency room with dizziness that started yesterday evening around 8 p.m. then progressed to double vision. This did resolve prior to getting to the emergency room. She did state that she drove herself to the emergency room. PAST MEDICAL HISTORY: Anemia Dyslipidemia Chronic sinusitis PAST SURGICAL HISTORY: Shoulder repair Hip replacement REVIEW OF SYSTEMS: CONSTITUTIONAL: No night sweats. No fatigue, malaise, lethargy. No fever or chills. HEENT: Eyes: No visual changes. No eye pain. No eye discharge. ENT: No runny nose. No epistaxis. No sinus pain. No sore throat. No odynophagia. No ear pain. No congestion. RESPIRATORY: No cough, no congestion. No hemoptysis. No shortness of breath. CARDIOVASCULAR: No angina symptoms. No CHF symptoms. No atypical chest pain for CAD. No palpitations. No PND. No orthopnea. GASTROINTESTINAL: No abdominal pain. No nausea or vomiting. No diarrhea or constipation. No hematemesis. No hematochezia. GENITOURINARY: No urgency. No frequency. No dysuria. No hematuria. No obstructive symptoms. No discharge. No pain. No significant abnormal bleeding. MUSCULOSKELETAL: No musculoskeletal pain. No joint swelling. No arthritis. NEUROLOGICAL: Positive for headache. Positive for dizziness. Positive for lightheadedness. Positive for unsteadiness. No neck pain. No syncope. No seizures. PSYCHIATRIC: Not anxious. No depression. No suicidal thoughts. No homicidal thoughts. SKIN: No rash. No lesions. No wounds. ENDOCRINE: No unexplained weight loss. No weight gain. HEMATOLOGIC/LYMPHATIC: No anemia. No purpura. No petechiae. No prolonged or excessive bleeding. No palpable lymph nodes. PERSONAL/FAMILY/SOCIAL HISTORY: She is a nonsmoker. No alcohol or ilicit drug use. MEDICATIONS: Vesicare 5 mg p.o. bedtime ALLERGIES: SULFA, OUQTUCE-KOW-ASR REDUCTASE INHIBITOR, OXYCODONE, SACCHARIN, FELODIPINE, CIPROFIBRATE PHYSICAL EXAMINATION: VITAL SIGNS: Temperature 98.1, heart rate 63, respirations 20, blood pressure 186/80, pulse ox 95% on room air. HEENT: Head normocephalic, atraumatic. Eyes: Extraocular muscles are intact. Pupils are equal, round and reactive to light and accommodation. Ears: No lesions. Nose appeared normal. Throat: No exudate or erythema. NECK: Supple. No JVD, no carotid bruit. No lymphadenopathy or thyromegaly. LUNGS: Diminished breath sounds. Clear to auscultation. Percussion note normal. Chest symmetrical. HEART: S1, S2, no S3. No murmur. No cyanosis or clubbing. No ascites. Pulses: Dorsalis pedis and posterior tibial pulses +1 to +2 bilaterally. ABDOMEN: Soft. Nontender. Bowel sounds active. No CVA tenderness. No mass felt. EXTREMITIES: No edema. Full range of motion of all extremities, equal. NEUROLOGIC: Alert and oriented times three. No focal deficit. Cranial nerves II through XII are grossly intact. No headache, no double vision or headache. SKIN: Not dry. Intact. Turgor - normal. LYMPHATIC: No palpable lymph nodes/no lymphedema. MUSCULOSKELETAL: Normal joints with no swelling. Muscle tone is normal. LABS: White count 7.0, hemoglobin 12.4, hematocrit 38.7, platelets 263. Sodium 139, potassium 4.5, BUN 20, creatinine 0.91. CT of the brain shows no acute process. ASSESSMENT: 1. Hypertension 2. Dizziness 3. Questionable TIA 4. History of dyslipidemia PLAN: 1. We will admit. 2. Routine telemetry orders. 3. No cardiac markers. 4. CBC, CMP daily. 5. Normal Saline IV at 75 cc/hr. 6. Bilateral carotid scan. 7. UA. 8. Chest x-ray. 9. Continue home medications. 10. Start Losartan 50 mg b.i.d along with Bystolic 5 mg p.o. daily. 11. Will do MRI of the brain with and without tomorrow morning. TIME SPENT: More than 70 minutes. MTDD
--- NOTE | 2019-09-01 11:15 | MRI ---
EXAM: Brain MRI with and without contrast. HISTORY: Blurred vision with sudden onset dizziness. COMPARISON: Head CT 08/30/2019 and carotid artery duplex ultrasound 08/31/2019. TECHNIQUE: Multiplanar, multisequence MR images were acquired of the brain before and after administ ration of 15 ml Dotarem intravenous contrast. FINDINGS: The midline structures are central and the craniocervical junction is unremarkable. There is mild prominence of the ventricles and sulci which is considered within normal variation for the p atient's age. There are no abnormal extra-axial fluid collections. The brain parenchyma has no diffusion restriction to suggest acute hypoperfusion or infarction. Ther e is faint hazy FLAIR hyperintensity in the bilateral parieto-occipital periventricular white matter with a few more well defined T2 hyperintensities also present in this area and scattered in the supra tentorial white matter. 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 There are no abnormal foci of dark gradient echo signal. After administration of gadolinium, no e nhancing lesions are identified. The corpus callosum is normal in configuration. The pituitary glan d is normal in size and contrast enhancement. The infundibulum is mildly to the right of midline. There are no intraorbital masses. There has been previous lens surgery bilaterally. The frontal sin us is small There is minor hyperostosis frontalis interna. Mild mucosal thickening is present in th e ethmoid air cells bilaterally and in the right sphenoid air cell. Both maxillary sinuses are clear . The middle ears and mastoid air cells are unremarkable. There is no abnormal contrast enhancement in the internal auditory canals or labyrinthine structures. Expected flow voids are present in the major intracranial arteries and dural venous sinuses. There is upper cervical hypertrophic facet arthropathy. IMPRESSION: 1. No intracranial mass, hemorrhage or acute cerebral infarct. 2. Age related involutional changes and minor to mild chronic ischemic small vessel disease in the s upratentorial white matter.
[2019-09-01 13:35] VITALS: BP 99/54; TEMP 98
--- NOTE | 2019-09-01 14:15 | CM.DICTOOL ---
ADMISSION: 08/31/19 02:16 DISCHARGE: SEPTEMBER 01, 2019 DATE OF SERVICE: 09/01/19 FINAL DIAGNOSIS OPTHALMOPLEGIA HTN LVH BY ECHO HX: SCIATIA ANEMIA HYPERLIPIDEMIA DIVERTICULOSIS HEMORRHOIDS, INTERNAL DJD RT HIP DEGENERATIVE CHANGES L4-L5 MODERATE ARTHRITIS LT KNEE CARDIOMEGALY PER CHEST X-RAY RT HIP REPLACEMENT LT HIP REPLACEMENT CATARACT SURGERY TUBAL LIGATION REVERSE TOTAL LT SHOULDER ARTHROPLASTY LAST VITALS Temp Pulse Resp BP Pulse Ox 98.4 F 56 L 16 96/57 L 95 09/01/19 09:32 09/01/19 09:32 09/01/19 09:32 09/01/19 09:32 09/01/19 09:32 TAKE THESE MEDICATIONS AT HOME Solifenacin (Vesicare) 5 mg PO BEDTIME MARC Last Admin: 08/31/19 20:20 Dose: 5 mg Documented by: ALLERGIES Sulfa (Sulfonamide Antibiotics) Adverse Reaction (Mild, Verified 08/30/19 23:14) EDEMA ciprofibrate Adverse Reaction (Verified 08/30/19 23:14) felodipine [From Plendil] Adverse Reaction (Verified 08/30/19 23:14) oxycodone [From Percocet] Adverse Reaction (Verified 08/30/19 23:14) saccharin Adverse Reaction (Verified 09/01/19 04:14) Itzyejl-Kbp-Lkz Reductase Inhibitor Adverse Reaction (Verified 08/30/19 23:14) DISCONTINUED MEDICATIONS NONE NEW PRESCRIPTIONS: NEW PRESCRIPTIONS NONE SMOKING: NOT APPLICABLE DISEASE SPECIFIC EDUCATION: HTN LAB REVIEW: 09/01/19 04:40 09/01/19 04:40 09/01/19 04:40: Sodium 136.6, Potassium 4.17, Chloride 101.2, Carbon Dioxide 29.6, Anion Gap 9.97, BUN 20.9 H, Creatinine 0.89, Estimated GFR (MDRD) 62.00, BUN/Creatinine Ratio 23.48, Glucose 96.7, Calcium 9.09, Total Bilirubin 0.52, T 23.4, ALT 12.8, Alkaline Phosphatase 74.4, Total Protein 7.14, Albumin 3.83, Globulin 3.31, Albumin/Globulin Ratio 1.15 09/01/19 04:40: WBC 3.55 L, RBC 4.31, Hgb 12.5, Hct 39.3, MCV 91.2, MCH 29.0, MCHC 31.8, RDW Coeff of Roby 14.3, Plt Count 265, Immature Gran % (Auto) 0.3, Neut % (Auto) 39.7, Lymph % (Auto) 40.0, [place] % (Auto) 13.2 H, Eos % (Auto) 5.4, Baso % (Auto) 1.4, Immature Gran # (Auto) 0.0, Neut # (Auto) 1.4 L, Lymph # (Auto) 1.4, [place] # (Auto) 0.5, Eos # (Auto) 0.2, Baso # (Auto) 0.1 08/31/19 15:55: Total Creatine Kinase 67.9, Troponin I < 0.012 PLAN: DISCHARGE HOME DIET REGULAR RESUME TOLERATED PER YOUR PREFERENCES GLUTEN FREE AND NO PORK ACTIVITY TOLERATED DO NOT DRIVE IF EXPERIENCING DIZZINESS, DOUBLE VISION OR BLURRED VISION. FOLLOW UP WITH DR. STOKES / LENIN COLLAZO APRN ON SEPTEMBER 08, AT 930 AM CODE STATUS DO NOT RESUSCITATE MRS. KUNZ IS ALERT AND ORIENTED X 4 AND PLEASANT. SHE IS INDEPENDENT WITH ADLS AND UP TOLERATED. SHE IS CONTINENT OF BOWEL AND BLADDER. SHE HAS GOOD APPETITE . LIVES ALONE WITH HER DOG. PLANS FOR DISCHARGE DISCUSSED AND SHE AGREED. 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 TYPICALLY DOES NOT TAKE MANY MEDS AND MANAGES WELL . DARSHAN COLLAZO APRN
--- NOTE | 2019-09-02 10:31 | DS ---
DATE OF SERVICE: 09/01/19 FINAL DIAGNOSIS: 1. OPHTHALMOPLEGIA 2. HYPERTENSION 3. LVH BY ECHO 4. HISTORY OF SCIATICA 5. ANEMIA 6. HYPERLIPIDEMIA 7. DIVERTICULOSIS 8. HEMORRHOIDS, INTERNAL 9. DJD RT HIP 10.DEGENERATIVE CHANGES L4-L5 11.MODERATE ARTHRITIS LT KNEE 12.CARDIOMEGALY PER CHEST X-RAY 13.RT HIP REPLACEMENT 14.LT HIP REPLACEMENT 15.CATARACT SURGERY 16.TUBAL LIGATION 17.REVERSE TOTAL LT SHOULDER ARTHROPLASTY LAST VITALS: Temp Pulse Resp BP Pulse Ox 98.4 F 56 L 16 96/57 L 95 09/01/19 09:32 09/01/19 09:32 09/01/19 09:32 09/01/19 09:32 09/01/19 09:32 DISCHARGE INSTRUCTION: DISCHARGE HOME. FOLLOW UP WITH DR. STOKES / LENIN COLLAZO APRN ON SEPTEMBER 08, AT 930 AM. CODE STATUS DO NOT RESUSCITATE. TAKE THESE MEDICATIONS AT HOME: Solifenacin (Vesicare) 5 mg PO BEDTIME MARC ALLERGIES: Sulfa (Sulfonamide Antibiotics) Adverse Reaction (Mild, Verified 08/30/19 23:14) ciprofibrate Adverse Reaction (Verified 08/30/19 23:14) felodipine [From Plendil] Adverse Reaction (Verified 08/30/19 23:14) oxycodone [From Percocet] Adverse Reaction (Verified 08/30/19 23:14) saccharin Adverse Reaction (Verified 09/01/19 04:14) Khqqctk-Dar-Mng Reductase Inhibitor Adverse Reaction (Verified 08/30/19 23:14) DISCONTINUED MEDICATIONS: NONE NEW PRESCRIPTIONS: NONE SMOKING: NOT APPLICABLE DISEASE SPECIFIC EDUCATION: Hypertension DIET: REGULAR RESUME TOLERATED PER YOUR PREFERENCES GLUTEN FREE AND NO PORK ACTIVITY: TOLERATED. DO NOT DRIVE IF EXPERIENCING DIZZINESS, DOUBLE VISION OR BLURRED VISION. HOSPITAL COURSE: This is a white female who presented to the emergency room after having a dizzy spell at home with double vision. By the time she arrived to the emergency room this had since resolved. The ER through that she may have a TIA. CT of the brain without contrast in ER was normal. Yesterday morning we did a bilateral carotid scan which showed no significant plaque. This morning we did an MRI with and without contrast of the brain which was normal as well. She did have elevated blood pressure in the emergency room. She is not on any blood pressure medication and does not have a history of hypertension, it was up to 190/88. I gave her Losartan yesterday along with Bystolic and it still remained elevated in the afternoon, was up to 170/85. We have gave Lasix 20mg IV along with Norvasc 5mg this morning. Blood pressure was down to 108/60. She had over 2 liters of fluid out yesterday after the IV Lasix. Chest x-ray did show cardiomegaly. Dr. Stokes did perform an echo today prior to discharge which showed LVH with normal contractility. Her blood pressure has been low today. I do believe that she just had some fluid retention and Ophthalmoplegia which caused temporary double vision. Again, neurological status has been normal there are no signs of TIA. At time of discharge blood pressure 96/57. We will discharge her in stable condition with followup in the office next week. She is not having visual disturbances or dizziness since being admitted. She did have a slight headache yesterday and this has since resolved since blood pressure has resolved. We will followup with her in the office. TIME SPENT: More than 60 minutes. JAMAL
--- NOTE | 2019-09-03 10:30 | ECHO2D ---
Date of Exam: 09/01/19 Ordering Physician: DR. DARSHAN STOKES Room #: 115 Reason for Echo: HYPERLIPIDEMIA, DIZZINESS, POSSIBLE TIA M-Mode Normal Adult Results LV Dimensions Normal Adult Results AoV Opening excursions >1.6 >1.6 LVEDD-base- 3.5-5.8 4.6 Ao root dimensions 2.0-3.7 3.2 LVESD-base- 3.1-4.6 L. Atrium dimensions 1.9-3.8 3.2 Post. Wall thickness 0.8-1.1 1.2 IV septum (thickness) 0.7-1.2 1.2 Post. Wall excursion 0.72-1.3 NORMAL Septal motion NORMAL Systolic motion R. Ventricular cavity 1.5-2.0 NORMAL LVEF 60% 75% Paradoxical septal wall motion NORMAL 2-D : 2-D M Mode Echocardiogram was performed using apical four chamber and left parasternal long and short axis views. Mitral, tricuspid and aortic valves appear to be normal. Contractility of the left ventricle seems to be normal, so is the cavity size. Left atrial cavity size and aortic root appear to be normal. There is no pericardial effusion. There is no thrombus noted in the left ventricle or left atrial cavity. No mitral valve prolapse noted. M-MODE: MV: NORMAL AV: NORMAL TV: NORMAL PV: CHAMBER SIZE: NORMAL WALL MOTION: NORMAL PERICARDIUM: NORMAL INTERPRETATION: 1. BORDERLINE LEFT VENTRICULAR HYPERTROPHY 2. NORMAL VALVES 3. NORMAL LEFT VENTRICULAR CONTRACTILITY MTDD
--- NOTE | 2019-09-03 11:17 | PN ---
DATE OF SERVICE: 09/01/19 SUBJECTIVE: The patient was seen and examined with Nurse Practitioner. The patient had Diplopia, resolved for several hours. The patient likely had ophthalmoplegia with unknown etiology. The patient neurologist status is normal with normal mental status. REVIEW OF SYSTEMS: CONSTITUTIONAL: No night sweats. No fatigue, malaise, lethargy. No fever or chills. HEENT: Eyes: No visual changes. No eye pain. No eye discharge. ENT: No runny nose. No epistaxis. No sinus pain. No sore throat. No odynophagia. No congestion. RESPIRATORY: No cough, no congestion. No hemoptysis. No shortness of breath. CARDIOVASCULAR: No angina symptoms. No CHF symptoms. No atypical chest pain for CAD. No palpitations. No PND. No orthopnea. GASTROINTESTINAL: No abdominal pain. No nausea or vomiting. No diarrhea or constipation. No hematemesis. No hematochezia. GENITOURINARY: No urgency. No frequency. No dysuria. No hematuria. No obstructive symptoms. No discharge. No pain. No significant abnormal bleeding. MUSCULOSKELETAL: No musculoskeletal pain; no joint swelling. NEUROLOGICAL: No headache. No neck pain. No syncope. No seizures. No dizziness. PSYCHIATRIC: Not anxious. No depression. No suicidal thoughts. No homicidal thoughts. SKIN: No rash. No lesions. No wounds. ENDOCRINE: No unexplained weight loss. No weight gain. HEMATOLOGIC/LYMPHATIC: No anemia. No purpura. No petechiae. No prolonged or excessive bleeding. No palpable lymph nodes. PHYSICAL EXAMINATION: HEENT: Head normocephalic, atraumatic. Eyes: Extraocular muscles are intact. Pupils are equal, round and reactive to light and accommodation. Ears: No lesions. Nose appeared normal. Throat: No exudate or erythema. NECK: Supple. No JVD, no carotid bruit. No lymphadenopathy or thyromegaly. LUNGS: Clear to auscultation. Percussion note normal. Chest symmetrical. HEART: S1, S2, no S3. No murmurs. No cyanosis or clubbing. No ascites. Pulses: Dorsalis pedis and posterior tibial pulses +1 to +2 bilaterally. ABDOMEN: Soft. Nontender. Bowel sounds active. No CVA tenderness. No mass felt. EXTREMITIES: No edema. Full range of motion of all extremities, equal. NEUROLOGIC: No focal deficit. Cranial nerves II through XII are grossly intact. No headache, no double vision or headache. SKIN: Not dry. Intact. Turgor - normal. LYMPHATIC: No palpable lymph nodes/no lymphedema. MUSCULOSKELETAL: Normal joints with no swelling. Muscle tone is normal. LABS: Carotid scan normal, MRI reports pending. Echo showed normal LV contractility with borderline LVH. The patient's condition is overall stable. MRI is normal. She is going to be discharged home. TIME SPENT: More than 30 minutes. Plan and coordination of the patient's care discussed in the presence of nurse. JAMAL
--- NOTE | 2019-09-03 11:18 | PN ---
08/31/19: Level 5 09/01/19: D as in discharge MTDD
--- NOTE | 2019-09-03 14:30 | PN ---
DATE OF SERVICE: 08/31/19 SUBJECTIVE: The patient was seen and examined with the nurse practitioner. History and Physical was done. The patient had double vision which subsided, was somewhat dizzy. So far, the patient's CT scan was negative. She is going to have an MRI tomorrow. The patient's entire urological status is normal. Pupils are equal and reactive to light normally. She is moving all of her extremities. No neurological deficit noted. Cardiovascular status stable. The patient will undergo echocardiogram also to evaluate LV function and valvular status. Carotid scan is to be done today. Condition stable. TIME SPENT: More than 30 minutes. Plan and coordination of the patient's care discussed in the presence of nurse. JAMAL
== END 2019-09-01 14:40 | disposition home or self-care (01) | DRG 149 ==
LOC: ED 23:00 → MEDSURG B 08-31 02:16
PROVIDERS: ADMIT Internal Medicine; ATTEND Internal Medicine
DX: I10 Essential (primary) hypertension; R42 Dizziness and giddiness; R63.0 Anorexia; H53.2 Diplopia; H49.9 Unspecified paralytic strabismus; K64.8 Other hemorrhoids; E78.5 Hyperlipidemia, unspecified; G45.9 Transient cerebral ischemic attack, unspecified; D64.9 Anemia, unspecified